=== PATIENT | male | born 1960 | race Caucasian/White ===

== ENCOUNTER 2019-10-22 13:11 | Outpatient (CLI) | payer MEDICARE, MEDICAID, SELFPAY ==
--- NOTE | ~2019-10-22 | US_ITS ---
EXAMINATION: US soft tissue abdomen DATE: 10/22/2019 13:53 INDICATION: Abdominal lump in the right lower quadrant. TECHNIQUE: Multiple grayscale and Doppler ultrasound images of the abdomen were obtained. COMPARISON: CT abdomen 05/23/2019 FINDINGS: There is no abnormal mass in the patient's area of concern in the right lower quadrant. Asc ites is noted. IMPRESSION: 1. No abnormal mass in the patient's area of concern in the right lower quadrant. 2. Ascites. Reviewed, dictated and finalized at location A. IMPRESSION: 1. No abnormal mass in the patient's area of concern in the right lower quadran t. 2. Ascites.
== END 2019-10-22 13:12 | disposition home or self-care (01) ==
PROVIDERS: Visit Provider Emergency Medicine
DX: R10.31 Right lower quadrant pain (principal); R19.03 Right lower quadrant abdominal swelling, mass and lump; R18.8 Other ascites
CPT/HCPCS: 76705

== ENCOUNTER → 2020-03-09 15:44 | Outpatient (CLI) | payer MEDICARE, MEDICAID, SELFPAY ==
--- NOTE | ~2020-03-09 | XR_ITS ---
EXAMINATION: XR chest 2V DATE: 03/09/2020 17:08 INDICATION: Hemoptysis. TECHNIQUE: Frontal and lateral views of the chest were obtained. COMPARISON: Chest 2 views 03/30/2019, CT abdomen 05/23/2019 FINDINGS: There is a staple line at right lung apex. There is mild scarring at the lung apices. No pl eural effusion or pneumothorax. The heart size is normal. IMPRESSION: 1. Mild scarring at the lung apices. Reviewed, dictated and finalized at location A.
== END ==
PROVIDERS: PCP Emergency Medicine; Visit Provider Internal Medicine Medical Oncology
DX: R04.2 Hemoptysis (principal); R91.8 Other nonspecific abnormal finding of lung field
CPT/HCPCS: 71046

== ENCOUNTER → 2020-03-17 15:06 | Outpatient (CLI) | payer MEDICARE, MEDICAID, SELFPAY ==
--- NOTE | ~2020-03-17 | CT_ITS ---
EXAMINATION: CT abdomen pelvis wo con EXAM DATE: 03/17/2020 15:29 INDICATION: Inguinal hernias. TECHNIQUE: Spiral CT of the abdomen and pelvis was performed without contrast. Axial, coronal and s agittal images were reviewed. The dose-length product (DLP) for this examination was 844.13 mGy-cm. The exposure was tailored according to patient size (auto mA exposure control), and iterative recons truction (ASIR) was used as additional dose reduction technique. Comparison is made to prior examinat ion from 05/23/2019. FINDINGS: There is TIPS procedure. Liver is atrophic, cirrhotic. Gallbladder is distended but otherw ise unremarkable, appearance unchanged. There is small amount of ascites with significant interval im provement. Adrenal glands, pancreas, spleen are unremarkable. There is no nephrolithiasis or hydrone phrosis. The prostate is unremarkable. The bladder is unremarkable. There is no retroperitoneal o r pelvic lymphadenopathy. Small right inguinal hernia containing ascites. Moderate scattered arteri osclerotic disease. The appendix is normal. The stomach and small bowel are unremarkable. There is moderate amount of c olonic stool. No free intraperitoneal gas. The heart is normal in size. There are no pericardial or pleural effusions. The lung bases are unremarkable. Several punctate basilar nodules likely gra nulomas. IMPRESSION: 1. No acute intra-abdominal findings. 2. Small right inguinal hernia containing small amount of ascites. 3. Significant interval improvement in the now small amount of ascites. 4. Moderate colonic stool. Reviewed, dictated and finalized at location B.
== END ==
PROVIDERS: PCP Emergency Medicine; Visit Provider Surgery
DX: K40.90 Unilateral inguinal hernia, without obstruction or gangrene, not specified as recurrent (principal)
CPT/HCPCS: 74176

== ENCOUNTER 2020-05-26 01:05 | Emergency (ER) | payer MEDICARE, MEDICAID, SELFPAY ==
[2020-05-26] VITALS (7 sets, daily range): BP systolic 95–156; BP diastolic 58–88; PULSE 96–122; RESP 15–25; TEMP 37.1; O2SAT 97–100
--- NOTE | 2020-05-26 01:54 | ED.GENADULT ---
HPI - General Adult General Chief complaint: Abdominal Pain Stated complaint: n/v Time Seen by Provider: 05/26/20 01:13 History of Present Illness HPI narrative: Patient is a 59-year-old male with history of cirrhosis who presents ER with concern for food impaction. Reports he was eating dinner around 9 PM and was eating some cod and green beans when due to his throat being dry he swallowed and then started vomiting. If he drinks or swallows spit the liquid will come back up. He has not had this occur to him before. He did have a endoscopy 1 year ago that showed some esophageal varices that did not require banding. He has never had balloon dilation. Reports in the past he will get food stuck but then drinks water and can clear up but that did not work this evening. Related Data Home Medications Medication Instructions Recorded Confirmed atorvastatin 40 mg tablet 40 mg PO DAILY 03/05/20 04/20/20 diphenhydramine HCl 25 mg capsule 25 mg PO Q6H PRN 03/05/20 04/20/20 docusate sodium 50 mg capsule 50 mg PO DAILY 03/05/20 04/20/20 furosemide 40 mg tablet 40 mg PO QAM 03/05/20 04/20/20 hydroxyzine HCl 25 mg tablet 25 mg PO DIRECTED PRN tablet 03/05/20 04/20/20 lactulose 10 gram/15 mL oral 10 gm PO QPM 03/05/20 04/20/20 solution melatonin 5 mg capsule 10 mg PO HS PRN 03/05/20 04/20/20 spironolactone 100 mg tablet 100 mg PO DAILY 03/05/20 04/20/20 triamcinolone acetonide 0.1 % 1 applic TOPICAL DAILY PRN gm 03/05/20 04/20/20 topical cream acetaminophen 500 mg tablet 500 mg PO Q6H PRN 03/19/20 04/20/20 calcium carbonate 550 mg-magnesium 2 tablet PO Q6H PRN 03/19/20 04/20/20 hydroxide 110 mg chewable tablet oxycodone 10 mg tablet 10 mg PO Q4H PRN 03/19/20 04/20/20 cyanocobalamin (vitamin B-12) 500 mcg PO DAILY 04/20/20 04/20/20 [Vitamin B-12] zinc 10 mg PO DAILY 04/20/20 04/20/20 Allergies Allergy/AdvReac Type Severity Reaction Status Date / Time albumin colloid, human AdvReac Severe Hypotension, Verified 05/26/20 01:33 hives, throat swelling, itching Review of Systems Constitutional: Constitutional: Denies chills, Denies fever(s) and Denies weakness ENT: Denies nasal congestion and Denies sore throat Gastrointestinal: Gastrointestinal: Reports abdominal pain (Fullness into the chest), Denies diarrhea, Reports nausea and Reports vomiting PMFSH Past Medical History Medical History (Updated 05/26/20 @ 05:11 by Johnathan Ibarra MD) Cirrhosis of liver with ascites History of heart attack Inguinal hernia of right side without obstruction or gangrene Surgical History Surgical History (Updated 03/09/20 @ 15:05 by Isaura Johnson) 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 Family History Family History Grandparent Oral cancer Acute myocardial infarction Social History Social History Smoking packs per day: 1 Smoking cigarettes per day: 20.0 Years smoked: 30 Smoking pack-years: 30.00 Smoking status: Current every day smoker Tobacco type: cigarettes Alcohol intake: never Substance use: former Substance use type: marijuana Last use: LAST USE 2 YEARS AGO Additional occupation/education comments: Disabled Gender identity (if verbalized by the patient): Male Spiritual care concerns: No Exam Narrative: Exam Narrative: GENERAL: Well-appearing, well-nourished, and in no acute distress. HEAD: Normocephalic, atraumatic. ENT: Mucous membranes moist. CHEST: Clear to auscultation. No respiratory distress. HEART: Regular rate and rhythm. Normal peripheral pulses. ABDOMEN: Soft, nontender, nondistended. EXTREMITIES: Normal range of motion. No edema. NEURO: Alert and oriented x3. Course Reevaluation(s) Reevaluation #1: Discussed with Dr. Veloz. We will keep down in the ER until GI suite is miriam
[2020-05-26] MEDS: ONDANSETRON INJ 4 MG/2 ML VIAL IV PUSH (02:12)
[2020-05-26] MEDS: SODIUM CHLORIDE 0.9% IV 1,000 ML 999 ML IV CONT (02:12)
--- NOTE | 2020-05-26 02:44 | PC.NURSE ---
Called [facility] to request transport for 7am.. 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
== END 2020-05-26 05:15 | disposition home or self-care (01) ==
PROVIDERS: Emergency Provider Emergency Medicine; PCP Emergency Medicine
DX: T18.128A Food in esophagus causing other injury, initial encounter (principal); K74.60 Unspecified cirrhosis of liver; I25.2 Old myocardial infarction; F17.210 Nicotine dependence, cigarettes, uncomplicated
CPT/HCPCS: 96361; 96374; 99284; J2405; J7030

== ENCOUNTER 2020-07-14 01:39 | Emergency (ER) | payer MEDICARE, MEDICAID, SELFPAY ==
[2020-07-14 01:39] VITALS: BP 155/85; PULSE 106; RESP 12; TEMP 37; O2SAT 96
[2020-07-14 04:32] VITALS: BP 130/71; PULSE 100; RESP 20; O2SAT 100
[2020-07-14] MEDS: OXYMETAZOLINE HCL 0.05% NAS 15 ML BTL (*BKC) 1 SPRAY NASAL (04:45)
--- NOTE | 2020-07-14 04:50 | ED.EPISTAXIS ---
HPI - Epistaxis General Chief complaint: Epistaxis Stated complaint: Nose Bleed History of Present Illness HPI Narrative: Patient is a 59-year-old male who presents ER with epistaxis. Left-sided. Began spontaneously. Has had this recurrently. Recently had cautery by Dr. Early. He has been using a vaporizer as well as Sampson nasal spray. He is not on blood thinners. Related Data Home Medications Medication Instructions Recorded Confirmed atorvastatin 40 mg tablet 40 mg PO DAILY 03/05/20 04/20/20 diphenhydramine HCl 25 mg capsule 25 mg PO Q6H PRN 03/05/20 04/20/20 furosemide 40 mg tablet 40 mg PO QAM 03/05/20 04/20/20 hydroxyzine HCl 25 mg tablet 25 mg PO DIRECTED PRN tablet 03/05/20 04/20/20 lactulose 10 gram/15 mL oral 10 gm PO QPM 03/05/20 04/20/20 solution melatonin 5 mg capsule 10 mg PO HS PRN 03/05/20 04/20/20 spironolactone 100 mg tablet 100 mg PO DAILY 03/05/20 04/20/20 triamcinolone acetonide 0.1 % 1 applic TOPICAL DAILY PRN gm 03/05/20 04/20/20 topical cream acetaminophen 500 mg tablet 500 mg PO Q6H PRN 03/19/20 04/20/20 calcium carbonate 550 mg-magnesium 2 tablet PO Q6H PRN 03/19/20 04/20/20 hydroxide 110 mg chewable tablet oxycodone 10 mg tablet 10 mg PO Q4H PRN 03/19/20 04/20/20 cyanocobalamin (vitamin B-12) 500 mcg PO DAILY 04/20/20 04/20/20 [Vitamin B-12] zinc 10 mg PO DAILY 04/20/20 04/20/20 docusate sodium 50 mg capsule 100 mg PO DAILY cap 05/27/20 Allergies Allergy/AdvReac Type Severity Reaction Status Date / Time albumin colloid, human AdvReac Severe Hypotension, Verified 07/14/20 01:45 hives, throat swelling, itching Review of Systems Constitutional: Constitutional: Denies chills, Denies fever(s) and Denies weakness ENT: Reports epistaxis, Denies nasal congestion and Denies sore throat Respiratory: Respiratory: Denies cough and Denies dyspnea PMF Past Medical History Medical History (Updated 07/14/20 @ 04:51 by Johnathan Ibarra MD) Cirrhosis of liver with ascites History of heart attack Inguinal hernia of right side without obstruction or gangrene Surgical History Surgical History (Updated 03/09/20 @ 15:05 by Isaura Johnson) 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 Family History Family History Grandparent Oral cancer Acute myocardial infarction Social History Social History Smoking packs per day: 1 Smoking cigarettes per day: 20.0 Years smoked: 30 Smoking pack-years: 30.00 Smoking status: Current every day smoker Tobacco type: cigarettes Alcohol intake: never Substance use: former Substance use type: marijuana Last use: LAST USE 2 YEARS AGO Additional occupation/education comments: Disabled Gender identity (if verbalized by the patient): Male Spiritual care concerns: No Exam Narrative: Exam Narrative: GENERAL: Well-appearing, well-nourished, and in no acute distress. HEAD: Normocephalic, atraumatic. ENT: Stigmata of bleeding in the nares bilaterally with no evidence of source of bleed. Mucous membranes moist. NEURO: No focal deficits. Alert and oriented x3. PSYCH: Normal mood and affect. Course Course Emergency Course: Bleeding controlled with pressure. Vital Signs Vital signs: Vital Signs Temperature 98.6 F 07/14/20 01:39 Pulse Rate 106 H 07/14/20 01:39 Respiratory Rate 12 07/14/20 01:39 Blood Pressure 155/85 H 07/14/20 01:39 Pulse Oximetry 96 07/14/20 01:39 Temperature 98.6 F 07/14/20 01:39 Pulse Rate 100 07/14/20 04:32 Respiratory Rate 20 07/14/20 04:32 Blood Pressure 130/71 07/14/20 04:32 Pulse Oximetry 100 07/14/20 04:32 Discharge Plan Discharge Clinical Impression: Epistaxis Patient Disposition: Home, Self-Care Condition: Stable Instructions: Nosebleed (ED) Additio
== END 2020-07-14 05:00 | disposition home or self-care (01) ==
PROVIDERS: Emergency Provider Emergency Medicine; PCP Emergency Medicine
DX: R04.0 Epistaxis (principal); K74.60 Unspecified cirrhosis of liver; I25.2 Old myocardial infarction; F17.210 Nicotine dependence, cigarettes, uncomplicated
CPT/HCPCS: 99283; A9270

== ENCOUNTER 2020-08-13 14:58 | Outpatient (CLI) | payer MEDICARE, MEDICAID, SELFPAY ==
--- NOTE | 2020-08-13 15:00 | ECG_ITS ---
Measurements Intervals [place] Rate: 95 P: 20 IN: 164 QRS: -6 QRSD: 81 T: 14 QT: 362 QTc: 456 Interpretive Statements SINUS RHYTHM LOW QRS VOLTAGE IN PRECORDIAL LEADS BORDERLINE R WAVE PROGRESSION, ANTERIOR LEADS BASELINE ARTIFACT- I, II, III BORDERLINE ECG Electronically Signed On 08-13-2020 15:28:06 RESIDENT CARE ASSOCIATE by Jorje Berrios D.O.
[2020-08-13 15:38] LABS: Hematocrit 33.5 % (42.0-52.0); Hemoglobin 11.8 g/dL (14.0-18.0)
[2020-08-13 15:48] LABS: INR 1.1; Prothrombin Time 14.6 Seconds (11.1-14.7)
[2020-08-13 15:49] LABS: Partial Thromboplastin Time 32.6 SECONDS (22.3-36.8)
[2020-08-13 15:53] LABS: Anion Gap 5 mmol/L (8-16); Blood Urea Nitrogen 17 mg/dL (9-20); Calcium 9.2 mg/dL (8.4-10.2); Carbon Dioxide 26 mmol/L (22-30); Chloride 100 mmol/L (98-107); Estimated Glomerular Filt Rate > 60; Glucose 106 mg/dL (75-110); Potassium 4.8 mmol/L (3.4-5.0); Sodium 131 mmol/L (137-145)
== END 2020-08-13 14:59 | disposition home or self-care (01) ==
PROVIDERS: Anesthesiology; PCP Emergency Medicine; Visit Provider Surgery
DX: K40.90 Unilateral inguinal hernia, without obstruction or gangrene, not specified as recurrent (principal); E78.00 Pure hypercholesterolemia, unspecified; K76.9 Liver disease, unspecified; Z79.899 Other long term (current) drug therapy; D64.9 Anemia, unspecified; Z01.818 Encounter for other preprocedural examination
CPT/HCPCS: 36415; 80048; 85014; 85018; 85610; 85730; 86850; 86900; 86901; 93005

== ENCOUNTER → 2020-08-28 02:21 | Outpatient (CLI) | payer MEDICARE, MEDICAID, SELFPAY ==
[2020-08-28 19:28] LABS: SARS-CoV-2 RNA PCR Negative
== END ==
PROVIDERS: PCP Emergency Medicine; Visit Provider Surgery
DX: Z01.812 Encounter for preprocedural laboratory examination (principal); Z20.822 Contact with and (suspected) exposure to COVID-19
CPT/HCPCS: C9803; U0003; U0005

== ENCOUNTER 2020-08-28 10:14 | Outpatient (CLI) | payer MEDICARE, MEDICAID, SELFPAY | END 2020-08-28 10:15 | disposition home or self-care (01) | LOC: ANHLAB 10:19 | PROVIDERS: PCP Emergency Medicine; Visit Provider Surgery | DX: K46.9 Unspecified abdominal hernia without obstruction or gangrene (principal); Z01.818 Encounter for other preprocedural examination | CPT/HCPCS: 36415; 86850; 86900; 86901 ==

== ENCOUNTER 2020-08-31 01:52 | Day surgery (SDC) | payer MEDICARE, MEDICAID, SELFPAY ==
[2020-04-20 09:23] VITALS: BMI 25.1
[2020-08-12 10:03] VITALS: BMI 26.5
--- NOTE | 2020-08-24 14:10 | PC.NURSE ---
PT DENIES ANY CHANGE IN HEALTH OR MEDICATION SINCE INTERVIEW. NEW INSTRUCTIONS REVIEWED. ALL QUESTIONS ANSWERED.
--- NOTE | 2020-08-31 06:56 | WPDANESEPPF ---
Anes - Initial Pre Proc Eval Procedure: Operation Date: 08/31/20 07:30 Proposed Procedures p Robotic Assisted Laparoscopic Right Inguinal Hernia Repair With Mesh - Ny Ho MD Date/Time: 08/31/20 06:56 Surgeon: Ny Ho MD Pre Op Diagnosis: Right Inguinal Hernia Patient Data Age: 60 Gender: M Height: 5 ft 11 in Weight: 94.1 kg Allergies Allergy/AdvReac Type Severity Reaction Status Date / Time albumin colloid, human Allergy Severe Hypotension, Verified 08/31/20 06:22 hives, throat swelling, itching Home Medications Medication Instructions Recorded Confirmed Type atorvastatin 40 mg tablet 40 mg PO DAILY 03/05/20 08/31/20 History diphenhydramine HCl 25 mg capsule 25 mg PO Q6H PRN 03/05/20 08/12/20 History furosemide 40 mg tablet 40 mg PO QAM 03/05/20 08/31/20 History hydroxyzine HCl 25 mg tablet 25 mg PO DIRECTED PRN tablet 03/05/20 08/12/20 History lactulose 10 gram/15 mL oral 10 gm PO QPM PRN 03/05/20 08/31/20 History solution melatonin 5 mg capsule 10 mg PO HS PRN 03/05/20 08/31/20 History spironolactone 100 mg tablet 100 mg PO DAILY 03/05/20 08/31/20 History triamcinolone acetonide 0.1 % 1 applic TOPICAL DAILY PRN gm 03/05/20 08/12/20 History topical cream acetaminophen 500 mg tablet 500 mg PO Q6H PRN 03/19/20 08/31/20 History calcium carbonate 550 mg-magnesium 2 tablet PO Q6H PRN 03/19/20 08/12/20 History hydroxide 110 mg chewable tablet oxycodone 10 mg tablet 10 mg PO Q4H PRN 03/19/20 08/31/20 History cyanocobalamin (vitamin B-12) 500 mcg PO DAILY 04/20/20 08/31/20 History [Vitamin B-12] zinc 10 mg PO DAILY 04/20/20 08/12/20 History docusate sodium 50 mg capsule 100 mg PO DAILY cap 05/27/20 08/31/20 History Lidocaine Cream 4 % PRN 08/12/20 08/12/20 History polyethylene glycol 3350 [Miralax] 17 g PO DAILY PRN 08/12/20 08/12/20 History simethicone [Gas-X Extra Strength] 125 mg PO DAILY PRN 08/12/20 08/12/20 History Patient hx anesthesia problems: none Family hx anesthesia problems: none PMFSH Past Medical History Medical History Cirrhosis of liver with ascites History of heart attack Inguinal hernia of right side without obstruction or gangrene Surgical History Surgical History 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 Family History Family History Grandparent Oral cancer Acute myocardial infarction Social History Social History Smoking packs per day: 1 Smoking cigarettes per day: 20.0 Years smoked: 30 Smoking pack-years: 30.00 Smoking status: Current every day smoker Tobacco type: cigarettes Alcohol intake: never Alcohol use details: STATES LAST DRINK FEB 2019 Substance use: former Substance use type: marijuana Last use: 2017 Living arrangements: with family Additional occupation/education comments: Disabled Gender identity (if verbalized by the patient): Male Spiritual care concerns: No Anes - Eval Final PreProcedure Day of Procedure 08/31/20 06:56 Patient weight: overweight Heart: regular rate and rhythm Lungs: clear to auscultation Airway: Mallampati scale class III and special considerations poor opening and poor dentition Last oral intake: >/= 8 hours ASA classification: IV Emergent: no Anesthetic plan: proceed Anesthesia type and monitoring: general ETT and standard monitoring Informed Consent: The patient's anesthetic plan and its attendant risks and benefits were discussed with the patient/family/POA. Questions were solicited and answers provided to the satisfaction of the patient/family/POA.
[2020-08-31] MEDS: ACETAMINOPHEN 500 MG TABLET 1000 MG PO (07:23)
[2020-08-31] MEDS: LACTATED RINGERS 1,000 ML 30 ML IV CONT (07:23)
[2020-08-31 07:28] VITALS: BP 133/74; PULSE 95; RESP 16; TEMP 36.8; O2SAT 100
[2020-08-31] MEDS: KETOROLAC 15 MG/ML VIAL (*BKC) IV PUSH (07:28)
--- NOTE | 2020-08-31 07:38 | WPDHPUPDATE1 ---
History and Physical Update Update Date/Time: 08/31/20 07:38 History and Physical has been reviewed, including an updated exam of the patient. Patient reports worsening of his overall health including severe coagulopathy. Pt reports recently he has had severe nosebleeds requiring operative intervention. Pt also reports during last procedure c general anesthesia he had a cardiac arrest. Pt is very anxious overall. After long d/w pt and his , as well as anesthesia, decision made to cancel the procedure. Pt will need a higher level of care to proceed c hernia repair.
== END 2020-08-31 07:50 | disposition home or self-care (01) ==
PROVIDERS: PCP Emergency Medicine; Visit Provider Surgery
PROC: 8E0Y4CZ Robotic Assisted Procedure of Lower Extremity, Percutaneous Endoscopic Approach (ICD-10-PCS; CPT 49650; principal; 2020-08-31 07:30)
DX: K40.90 Unilateral inguinal hernia, without obstruction or gangrene, not specified as recurrent (principal); Z53.29 Procedure and treatment not carried out because of patient's decision for other reasons
CPT/HCPCS: 36415; 80048; 85014; 85018; 85610; 85730; 86850; 86900; 86901; 93005; 99213; A9270; C9803; G0463; J1885; J2250; J3010; J7030; J7120; U0003; U0005

== ENCOUNTER 2020-10-09 17:41 | Outpatient (CLI) | payer MEDICARE, MEDICAID, SELFPAY ==
[2020-10-09 18:02] LABS: Basophils Absolute Auto 0.1 K/mm3 (0.0-0.1); Basophils Percent Auto 0.7 % (0.2-1.2); Eosinophils Absolute Auto 0.3 K/mm3 (0-0.3); Hematocrit 32.7 % (42.0-52.0); Hemoglobin 11.4 g/dL (14.0-18.0); Immature Granulocyte Absolute 0.01 K/mm3 (0.00-0.031); Immature Granulocyte Percent A 0.1 % (0-0.5); Lymphocytes Absolute Auto 2.51 K/mm3 (0.9-3.2); Mean Corpuscular HGB Conc 34.9 g/dl (32-36); Mean Corpuscular Hemoglobin 35.8 pg (26-34); Mean Corpuscular Volume 102.8 fl (80-100); Mean Platelet Volume 8.7 fl (7.4-10.4); Monocytes Absolute Auto 0.9 K/mm3 (0.1-0.6); Monocytes Percent Auto 12.8 % (2.6-8.5); Neutrophils Percent Auto 44.4 % (45.5-73.1); Platelet Count Result 146 k/mm3 (150-375); Red Blood Count 3.18 M/mm3 (4.6-6.20); Red Cell Distribution Width 12.8 % (11.5-14.5); Reticulocyte Hemoglobin Conten 39.8 pg (28.2-35.7); Reticulocytes Absolute 0.06 B/L (32.2-175.7); White Blood Count 6.8 K/mm3 (4.5-10.0)
[2020-10-09 18:13] LABS: Alanine Aminotransferase 21 U/L (4-50); Albumin Level 4.1 g/dL (3.5-5.1); Alkaline Phosphatase 110 U/L (38-126); Anion Gap 8 mmol/L (8-16); Aspartate Amino Transferase 37 U/L (17-59); Bilirubin,Total 0.5 mg/dL (0.2-1.3); Blood Urea Nitrogen 12 mg/dL (9-20); Calcium 9.4 mg/dL (8.4-10.2); Carbon Dioxide 25 mmol/L (22-30); Chloride 99 mmol/L (98-107); Estimated Glomerular Filt Rate > 60; Glucose 123 mg/dL (75-110); Potassium 4.2 mmol/L (3.4-5.0); Sodium 132 mmol/L (137-145)
== END 2020-10-09 17:42 | disposition home or self-care (01) ==
LOC: ANHLAB 17:46
PROVIDERS: PCP Emergency Medicine; Visit Provider Internal Medicine Medical Oncology
DX: D53.9 Nutritional anemia, unspecified (principal); D69.59 Other secondary thrombocytopenia
CPT/HCPCS: 36415; 80053; 85025; 85046

== ENCOUNTER 2020-11-16 16:24 | Outpatient (CLI) | payer MEDICARE, MEDICAID, SELFPAY ==
[2020-11-16 17:44] LABS: INR 1.1; Prothrombin Time 15.1 Seconds (11.1-14.7)
== END 2020-11-16 16:25 | disposition home or self-care (01) ==
PROVIDERS: PCP Emergency Medicine
DX: K70.31 Alcoholic cirrhosis of liver with ascites (principal); Z95.828 Presence of other vascular implants and grafts; D69.59 Other secondary thrombocytopenia
CPT/HCPCS: 36415; 85610

== ENCOUNTER 2021-03-17 14:41 | Outpatient (CLI) | payer MEDICARE, MEDICAID, SELFPAY ==
--- NOTE | 2021-03-17 | ECHO_ITS ---
Patient Info Name: Anthony Harrison Age: 60 years : 1960 Gender: Male Ht: 71 in Wt: 216 lbs BSA: 2.24 m2 HR: 78 bpm Heart Rhythm: Sinus Rhythm Technical Quality: Fair Exam Date: 03/17/2021 3:02 PM [facility] Patient Status: Outpatient Admit Date: 03/17/2021 Staff Ordering Physician: Kaleigh Queen Insulation Packer: Dari Ward RDCS Attending Provider: Kaleigh Queen Referring Physician: Bret CANDELARIA; Exam Type: CA echo doppler color flow Study Info Indications - PRE OP Complete two-dimensional, color flow and Doppler transthoracic echocardiogram is performed. Summary 1. Complete two-dimensional, color flow and Doppler transthoracic echocardiogram is performed. 2. Left ventricular chamber dimension is normal. 3. Left ventricular systolic function is normal, estimated at 65-70%. 4. There is no increased left ventricular wall thickness. 5. The left ventricular diastolic function is grade I diastolic dysfunction. 6. The mid inferoseptal is akinetic. 7. The inferior wall, apical septum, basal inferoseptal, basal anteroseptal, and mid anteroseptal are hypokinetic. 8. Left atrial chamber dimension is mildly enlarged. 9. There is mild tricuspid valve regurgitation. Left Ventricle Left ventricular chamber dimension is normal. Left ventricular systolic function is normal, estimated at 65-70%. There is no increased left ventricular wall thickness. The left ventricular diastolic function is grade I diastolic dysfunction. The mid inferoseptal is akinetic. The inferior wall, apical septum, basal inferoseptal, basal anteroseptal, and mid anteroseptal are hypokinetic. All other vines appear normal. Right Ventricle Right ventricular chamber dimension is normal. Right ventricular systolic function is normal. Left Atria Left atrial chamber dimension is mildly enlarged. Right Atria Right atrial chamber dimension is normal. Atrial Septum Intact interatrial septum visualized by color flow imaging. Aortic Valve The aortic valve is probable trileaflet. There is mild aortic valve sclerosis. There is no aortic valve stenosis. There is trace aortic valve regurgitation. Pulmonic Valve The pulmonic valve is normal. There is no pulmonic valve stenosis. There is trace pulmonic regurgitation. Mitral Valve The mitral valve has calcified annulus. There is no mitral valve stenosis. There is trace mitral valve regurgitation. Tricuspid Valve The tricuspid valve leaflets are normal. There is no significant tricuspid valve stenosis. There is mild tricuspid valve regurgitation. No pulmonary hypertension, estimated pulmonary arterial systolic pressure is 33 mmHg. Pericardium/Pleural The pericardium appears normal. There is no pericardial effusion. Inferior Vena Cava Normal inferior vena cava with >50% collapse upon inspiration consistent with normal right atrial pressure, 10 mmHg. Aorta The aortic root size at the sinus of Valsalva is normal. Left Ventricular Outflow Tract Name Value Normal LVOT 2D LVOT Diameter 2.1 cm LVOT Doppler LVOT Peak
== END 2021-03-17 14:42 | disposition home or self-care (01) ==
LOC: ANHCARD 14:46
PROVIDERS: PCP Emergency Medicine
DX: Z01.818 Encounter for other preprocedural examination (principal); I36.1 Nonrheumatic tricuspid (valve) insufficiency
CPT/HCPCS: 93306

== ENCOUNTER 2022-02-11 17:43 | Outpatient (CLI) | payer MEDICARE, MEDICAID, SELFPAY ==
--- NOTE | ~2022-02-11 | CT_ITS ---
EXAMINATION: CT thoracic lumbar wo con DATE: 02/11/2022 18:14 INDICATION: Back pain. TECHNIQUE: Computed tomography (CT) of the thoracic and lumbar spine was performed without intravenou s contrast. Automated exposure control and iterative reconstruction technique were employed. The dose -length product was 2015.46 mGy-cm. COMPARISON: None FINDINGS: CT THORACIC SPINE: There is 9 degrees levocurvature of thoracic spine. There is kyphosis of thoracic spine. There is mild chronic anterior wedging of T12 vertebral body. There is mildly decreased disc h eight from T7-T8 through T12-L1. There is multilevel mild facet joint osteoarthritis. On the right, t here is mild neural foraminal stenosis at T9-T10 and T10-T11. On the left, there is mild neural isabela inal stenosis at T7-T8, T8-T9, and T9-T10. No central canal stenosis. CT LUMBAR SPINE: Partially visualized is a TIPS. There is mild chronic anterior wedging of L1 vertebr al body. There is mildly decreased disc height at L1-L2. The following disc levels are specifically d iscussed: L1-L2: The disc is bulging. There is mild bilateral facet joint osteoarthritis. There is no neural fo raminal stenosis. There is no central canal stenosis. L2-L3: The disc is bulging. There is mild bilateral facet joint osteoarthritis. There is mild left ne ural foraminal stenosis. There is no central canal stenosis. L3-L4: The disc is bulging. There is moderate right and severe left facet joint osteoarthritis. There is mild bilateral neural foraminal stenosis. There is no central canal stenosis. L4-L5: The disc is bulging. There is moderate bilateral facet joint osteoarthritis. There is mild rojelio ateral neural foraminal stenosis. There is mild central canal stenosis. L5-S1: The disc is bulging. There is mild bilateral facet joint osteoarthritis. There is no neural fo raminal stenosis. There is no central canal stenosis. IMPRESSION: 1. Mild thoracic and lumbar spondylosis. 2. Thoracic kyphosis. Reviewed, dictated and finalized at location A.
== END 2022-02-11 17:44 | disposition home or self-care (01) ==
PROVIDERS: PCP Family Medicine
DX: M47.24 Other spondylosis with radiculopathy, thoracic region (principal); M47.26 Other spondylosis with radiculopathy, lumbar region
CPT/HCPCS: 72128; 72131

== ENCOUNTER 2024-10-09 13:44 | Outpatient (CLI) | payer MEDICARE, MEDICAID, SELFPAY ==
--- NOTE | ~2024-10-09 | CT_ITS ---
EXAMINATION: CT thoracic lumbar wo con DATE: 10/09/2024 14:46 INDICATION: Radiculopathy TECHNIQUE: Computed tomography (CT) of the thoracic and lumbar spine was performed without intravenou s contrast. Automated exposure control and iterative reconstruction technique were employed. The dose -length product was 1075.00 mGy-cm. COMPARISON: Lumbar spine MR dated 09/20/2018, chest CT dated 04/25/[address] abdomen and pelvis date d 03/17/2020 FINDINGS: Thoracic spine: 20 degrees thoracic levoscoliosis. Sagittal alignment is normal. Chronic mild anterior wedging at T12 . There are Schmorl's nodes at both sides of the T10-T11 through L1-L2 disc spaces. No acute fracture . Moderate to severe disc height loss at T11-T12, moderate right-sided predominant disc height loss a t T7-T8 through T9-T10 and mild disc height loss at the remaining levels from T4-T5 through T12-L1. M ild disc bulge resulting in mild central canal stenosis at T11-T12. Multilevel mild to moderate thora cic facet osteoarthritis which contributes to minimal to mild neural foraminal stenosis prominent on the left at T7-T8 through T9-T10 and on the right at T9-T10 and T10-T11. Visualized portion of lungs are clear. Paravertebral soft tissues are unremarkable. Lumbar spine: 15 degrees thoracolumbar dextro scoliosis. Sagittal alignment is normal. Additional chronic mild like ly physiologic anterior wedging at L1. Mild left-sided vertebral body height loss at L1-L2 and L2-L3 and more diffuse mild disc height loss at L4-5 and L5-S1. Paravertebral soft tissues are unremarkable . The following disc levels are specifically discussed: T12-L1: The disc does not extend beyond the endplate margin. There is mild to moderate bilateral face t joint osteoarthritis. There is no neural foraminal stenosis. There is no central canal stenosis. L1-L2: Disc is mildly bulging. There is mild left and moderate right facet joint osteoarthritis. Ther e is mild left neural foraminal stenosis. There is mild central canal stenosis. L2-L3: Disc is bulging. There is moderate left to moderate right facet joint osteoarthritis. There is mild bilateral neural foraminal stenosis. There is mild central canal stenosis. L3-L4: Disc is bulging. There is moderate right and moderate to severe left facet joint osteoarthriti s. There is mild bilateral neural foraminal stenosis. There is mild central canal stenosis. L4-L5: Disc is bulging. There is moderate bilateral facet joint osteoarthritis. There is mild to mode rate bilateral neural foraminal stenosis. There is mild central canal stenosis. L5-S1: The disc does not extend beyond the endplate margin. There is mild bilateral facet joint osteo arthritis. There is no neural foraminal stenosis. There is no central canal stenosis. IMPRESSION: 1. S-shaped thoracic lumbar scoliosis with 20 degree thoracic levoscoliosis and 15 degrees thoracolum bar dextroscoliosis. 2. Moderate to severe lower thoracic predominant thoracic spondylosis and mild lumbar spondylosis. Reviewed, dictated and finalized at location A. IMPRESSION: 1. S-shaped thoracic lumbar scoliosis with 20 degree thoracic levoscoliosis and 15 degrees thoracolumbar dextroscoliosis. 2. Moderate to severe lower thoracic predominant thoracic spondylosis and mild lumbar spondylosis.
--- OUTSIDE RECORDS SUMMARY | 2024-10-09 14:40 | XMS_ITS | Clinical Summary ---
Author Organization [facility] [address] Address [address] [place] [address] Care Team Providers Care Data Entry Name Role Phone Lei Moreno MD Unavailable [phone] Elmer Black DO Unavailable [phone] Sabina Bautista MD Unavailable Jillian Jimenez NP Primary Care Provider [phone] Allergies Active Allergy Reactions Criticality Noted Date Comments Amoxicillin Diarrhea Low 09/29/2023 Clindamycin Diarrhea Low 01/26/2023 Severe abdominal pain Penicillins Diarrhea Low 01/26/2023 Severe abdominal pain Medications atorvastatin (LIPITOR) 40 mg tabletIndicati ons:hyperlipid emia Take 1 tablet (40 mg total) by mouth nightly 0 Active calcium carbonate (TUMS) 500 mg calcium (200 mg of elemental calcium) chewable tabletIndicati ons:Heartburn Take 1 tablet/chew tab (500 mg total) by mouth as needed for indigestion or heartburn Has an inguinal hernia that sometimes causes digestion discomforts Active simethicone (GAS-X) 125 mg capsule Take 1 capsule (125 mg total) by mouth 4 (four) times a day as needed for flatulence 0 Active acetaminophen (TYLENOL) 500 mg tabletIndicati ons:Pain Take 2 tablets (1,000 mg total) by mouth every 6 (six) hours as needed for pain or headaches 2 tablets Active multivit,calc, mins/folic acid (ONE-A-DAY PROACTIVE 65 PLUS ORAL)Indicatio ns:Vitamin Deficiency Prevention Take 1 tablet by mouth every morning No Vitamin E or K in it takes with mid morning snack and lunch 1 Active oxymetazoline (AFRIN) 0.05 % nasal sprayIndicatio ns:to help prevent nose bleeds (left side is more prone to bleed than right) Administer 1 spray into each nostril 2 (two) times a day as needed (Nasal Epistaxis) 0 Active lidocaine HCL-menthoL 4-1 % cream Apply 1 Application topically as needed (uses for hernia pain) Active chlorhexidine (PERIDEX) 0.12 % solutionIndica tions:Mouth Infection Prevention Apply 15 mL to the mouth or throat nightly as needed 3 Active vitamin b complex tabletIndicati ons:Vitamin Deficiency Prevention Take 1 tablet by mouth every morning B6/folate/b12 Methyl versions Active tiZANidine (ZANAFLEX) 4 mg tabletIndicati ons:Muscle Spasm Take 1.33 mg by mouth nightly Only takes about a third of a tablet Active diphenhydrAMIN E 25 mg capsuleIndicat ions:congestio n Take 1 tablet/capsule (25 mg total) by mouth every 6 (six) hours as needed for allergies Active LORazepam (ATIVAN) 0.5 mg tablet Take 1 tablet (0.5 mg total) by mouth 3 (three) times a day as needed for anxiety for anxiety 20 tablet 5 Active spironolactone (ALDACTONE) 100 mg tabletIndicati ons:Ascites,In guinal hernia (gets larger if tries to get off) Take 0.5 tablets (50 mg total) by mouth nightly 30 tablet 5 12/06/19 29 Active furosemide (LASIX) 20 mg tabletIndicati ons:because of hernia/ got worse when tried to reduce dose Take 1 tablet (20 mg total) by mouth every other day 15 tablet 5 Active docusate sodium (COLACE) 100 mg capsuleIndicat ions:constipat ion Take 1 capsule (100 mg total) by mouth 2 (two) times a day with a glass of water 30 capsule 5 04/10/20 25 Discontin ued(Thera py completed ) Active Problems Problem Noted Date Diagnosed Date History of right inguinal hernia repair 07/29/19 25 Mixed hyperlipidemia 08/17/2023 Assessment & Plan (09/20/2024 8:45 AM CDT): Continue lipitor 40. Order for lipid panel today. Assessment & Plan (02/15/2024 3:38 PM CDT): Lipid abnormalities are stable, reviewed previous lipid levels in [facility]. Continue statin therapy. Lipitor (atorvastatin) Order for lipid panel was given today to be obtained. Pt voiced understanding of lab drawn and continuation of current medication regimen. Assessment & Plan (08/17/2023 4:29 PM G[employer]OLINE PLANT OPERATOR): Lipid abnormalities are stable, reviewed previous lipid levels in [facility]. Pharmacotherapy as ordered. Order for lipid panel was given today to be obtained. Pt voiced understanding of lab drawn and continuation of current medication regimen. Dental caries extending into pulp 08/03/2023 Tobacco use 07/14/2022 Assessment & Plan (02/15/2024 4:33 PM CDT): He is actively working on smoking cessation. Assessment & Plan (07/14/2022 5:35 PM G[employer]OLINE PLANT OPERATOR): Chronic, encouraged and discussed cessation. Educated about the Nicotine patches, not interested in Zyban. He is wishing to hold off on CT Lung Cancer screen at this time. Chronic pain syndrome 08/20/2021 Assessment & Plan (08/20/2021 6:20 PM GASOLINE PLANT OPERATOR): Planning on stepping down to 1/2 tab q6 PRN for the next month Gabapentin trial (may take as needed rather than every 8 hours on the clock) Discussed antibiotics Lumbosacral spondylosis without myelopathy 06/14 Lumbar facet joint syndrome 05/10/2021 Well adult exam 04/18/2021 Assessment & Plan (08/17/2023 3:26 PM G[employer]OLINE PLANT OPERATOR): Does not want PSA drawn today will take too long and needs labs back for preop - 1. Preoperative workup as follows hemoglobin, hematocrit, electrolytes, creatinine, glucose, liver function studies, coagulation studies. 2. Change in medication regimen before surgery: per surgeon . 3.. Other measures: cardiac clearance, GI clearance . 4. Chronic conditions are stable 5. Pt is moderate risk for surgery S/P TIPS (transjugular intrahepatic portosystemi c shunt) 08/06/2020 Assessment & Plan (07/13/2023 2:52 PM G[employer]OLINE PLANT OPERATOR): Due for repeat US with Doppler. Will order today Assessment & Plan (07/14/2022 5:34 PM G[employer]OLINE PLANT OPERATOR): Stable, continues follow up with GI/[employer]. Macrocytic anemia 02/02/2020 Assessment & Plan (07/13/2023 2:52 PM G[employer]OLINE PLANT OPERATOR): Likely secondary to cirrhosis and nutritional deficiencies. -follow up per heme -ctm Thrombocytopenia, secondary 02/02/2020 Assessment & Plan (09/20/2024 8:42 AM CDT): Lab Results Component Value Date LABPLAT 138 (L) 06/26/2024 Chronic/ stable. Assessment & Plan (07/14/2022 5:33 PM GASOLINE PLANT OPERATOR): Labs ordered Coronary artery disease, non-occlusive 0 Overview (04/14/2021): Last Assessment & Plan: Stable denies chest pain, coninue ASA and statin. FLP in November WNL. No changes. Assessment & Plan (07/14/2022 5:33 PM GASOLINE PLANT OPERATOR): Stable, continues current regimen and follows with Cardio. Anxiety disorder due to multiple medical problem s 08/11/2019 10/05/2022 Assessment & Plan (02/15/2024 3:38 PM CDT): Takes lorazepam prior to seeing medical appointment scheduler/ office visits. Assessment & Plan (08/17/2023 3:27 PM GASOLINE PLANT OPERATOR): Will renew lorazepam #10 tablets Assessment & Plan (10/06/2022 1:11 PM CDT): Has follow up scheduled with surgeon 11/[address] Fernando (ENT) 11/09 Anxiety attack has surpassed, will continue to monitor. Pt does not that once his oral surgery is scheduled he will want to talk to Dr Garsia about gradually weaning off of the Butrans. Alcoholic cirrhosis of liver with ascites 2018 Assessment & Plan (09/20/2024 8:46 AM CDT): Recovering. Assessment & Plan (01/18/2024 6:30 PM CDT): Decompensated by history but clinically stable in the face of alcohol abstinence, weight loss, and medical management. I will continue to screen for hepatocellular carcinoma sonographically every 6 months. He will return in 1 year or when clinically indicated. Assessment & Plan (08/17/2023 4:32 PM G[employer]OLINE PLANT OPERATOR): Managed by Dr. López. Ultrasound of abdomen scheduled August 22 Resolved Problems Problem Noted Date Diagnosed Date Resolved Date Inguinal hernia without obst ruction or gangrene 02/08/2024 08/09/2024 Therapeutic opioid-induced constipation (OIC) 12/10/1908/17/2023 Chronic bilateral low back p ain without sciatica 05/10/2021 08/17/2023 Assessment & Plan (06/06/2021 6:17 PM GASOLINE PLANT OPERATOR): It has been relayed to Anthony previously that I'm only covering oxycodone until pain management. He has had to cancel/move 2 appointments which he holds is due to difficulties with his transportation. I will not keep filling oxycodone after this next slated pain management appointment, so I emphasized he cannot miss or move that appointment Transportation resources may need to be readdressed. I'm not sure of the options off-hand. Perhaps we will check with social Long-term current use of opiate analgesic 05/10/2021 08/17/2023 Establishing care with jojo hargrove, encounter for 04/18/2021 08/17/2023 Assessment & Plan (04/18/2021 2:59 PM G[employer]OLINE PLANT OPERATOR): A visit to establish care has been performed today. Anthony Harrison is not up to date on screening tests. He is in need of Prostate screening, Lung cancer screen, hepatitis C screen and Colon cancer screening- these have been ordered. He is not up to date on needed preventative vaccinations; She is in need of Tdap/Td, Influenza and Zoster. These have been ordered/arranged unless otherwise indicated. Inguinal hernia of right emma e without obstruction or gangrene 04/14/2021 08/10/2024 Assessment & Plan (01/18/2024 6:31 PM CDT): Scheduled to see Dr. Moore in [place] regarding inguinal hernia repair in the near future. I see no contraindications to hernia repair in light of his clinical stability. Cardiac arrest 04/14/2021 01/12/2024 Overview (04/14/2021): Last Assessment & Plan: SP PEA arrest in the setting of hypotension/hypovolemia. Off Midodrine with improved BP today in clinic and per his home log. N syncope or presyncope. Pre operatively doing well. Repeat ECHO to assure EF stability in the setting of post cardiac arrest and multiple upcoming surgeries. EF in August 2019 stable. If EF remains stable then pt is at low risk for cardiovascular complications for upcoming surgery. All of his chronic cardiac conditions are stable and require no further work up at this time. If risk outweighs benefit then proceed. Assessment & Plan (08/17/2023 4:37 PM G[employer]OLINE PLANT OPERATOR): Has had clearance for previous procedures, but will need another clearance from cardiology given history of cardiac arrest. Other ascites 10/10/2019 08/17/2023 Hypotension 08/30/2019 08/17/2023 Insomnia 08/30/2019 08/17/2023 Encounters Date Type Department Care Team Description 09/25/2024 2:00 PM CDT Office Visit [facility]) - [facility] Urology [address] [facility] 11th Floor [address] [place] [phone] Louie Anne MD Acquired buried penis (Primary Dx) 09/19/2024 3:00 PM CDT Office Visit [facility] Primary Care at [address] [address] Jillian Jimenez NP Mixed hyperlipidemia (Primary Dx); Alcoholic cirrhosis of liver with ascites (HCC); Thrombocytopenia, secondary; Elevated glucose 09/17/2024 Telephone [facility] Gastroenterology [facility] 12th Floor [address] [place] [phone] Scan 09/05/[address] [facility]) - [facility] [place] Minimally Invasive Surgery [address] [place] [address] 12th Floor, [address] [place] [phone] Vonnie Calero RMA 09/04/2024 [facility]) - [facility] Minimally Invasive Surgery [address] [place] [address] 12th Floor, [address] [place] [phone] Peña Jones MD PhD Medical Question/Miscellaneous 2024 [facility]) - [facility] Minimally Invasive Surgery [address] [place] [address] 12th Floor, [address] [place] [phone] Peña Jones MD PhD Request For Order(s) 08/22/2024 Orders Only [facility] Gastroenterology [address] [place] [address] 12th Floor [address] [place] [phone] Cherry Gregory, CORA Alcoholic cirrhosis of liver with ascites (HCC) 08/21/2024 [facility]) - [facility] Minimally Invasive Surgery [address] [place] [address] 12th Floor, [place] [phone] Reinaldo Moore MD Request For Order(s) 08/19/2024 [facility]) - [facility] Minimally Invasive Surgery [address] [place] [address] Floor, [place] [address] Reinaldo Moore MD Medical Question/Miscellaneous 08/09/2024 3:00 PM G[employer]OLINE PLANT OPERATOR Office Visit [facility]) - [facility] Minimally Invasive Surgery [address], [place] [address] Leslie Kelley, BELLO History of robot-assisted repair of right inguinal hernia (Primary Dx); Acquired buried penis; Weakness 07/31/2024 Orders Only [facility] Gastroenterology [address] [place] [place] [address] [place] [address] Cherry Gregory RN Alcoholic cirrhosis of liver with ascites (HCC) 07/22/2024 Orders Only [facility] Minimally Invasive Surgery [address], [place] [phone] Reinaldo Moore MD Postoperative pain from Last 3 Months Immunizations Immunization Administration Dates Next Due Hep A / Hep B 03/08/2023,03/30/2022,11/24/2021 HiB 07/01/2019,06/14/2019 Influenza, Quadrivalent, Spl it, Preservative Free, Intramuscular 03/08/2023,05/14/2022 Influenza, Trivalent, Preser vative Free, Intramuscular 03/13/2024 Influenza, Unspecified 03/30/2022,2021(Deferred: Patient Refused),05/31/2021(Deferred: Patient Refused),03/19/2021,07/01/2020(Deferre d: Patient Refused),04/26/2020(Deferred: Patient Refused),07/01/2019,06/14/2019 Pneumococcal Conjugate Pcv20 04/03/2024 Surgical History Surgery Date Site/Laterality Comments TIPS PROCEDURE 08/09/2019 IR TIPS PROCEDURE 08/09/2019 Kiah Painter MD [facility] IVR NASAL SEPTUM SURGERY 06/12/1980 - 06/11/1981 EXTENSOR TENDON OF FOREARM / WRIST REPAIR 06/12/1972 - 06/11/1973 Left in youth US GUIDED PARACENTESIS 08/01/2019 N/A US GUIDED PARACENTESIS 07/25/2019 N/A US GUIDED PARACENTESIS 07/01/2019 N/A US GUIDED PARACENTESIS 06/14/2019 N/A US GUIDED PARACENTESIS 05/31/2019 N/A US GUIDED PARACENTESIS 05/13/2019 N/A US GUIDED PARACENTESIS 05/01/2019 N/A US GUIDED PARACENTESIS 04/16/2019 N/A US GUIDED PARACENTESIS 03/26/2019 N/A US GUIDED PARACENTESIS 02/28/2019 N/A MULTIPLE TOOTH EXTRACTIONS 02/02/2023 ALVEOLOPLASTY performed by Bernard Moreno DMD NASAL HEMORRHAGE CONTROL 09/22/2022 CONTROL OF EPISTAXIS US GUIDED PARACENTESIS ABDOMEN 10/10/2019 Percutaneous THORACOTOMY 06/12/1984 - 06/11/1985 right bleb removal and pleurodisis MULTIPLE TOOTH EXTRACTIONS 10/11/2023 LAPAROSCOPIC INGUINAL HERNIA REPAIR 07/04/2024 RTAPP Medical History Medical History Date Comments Heart attack (HCC) Peripheral neuropathy Cirrhosis (HCC) Anemia Cardiac arrest (HCC) Anxiety and depression Lumbar radiculopathy Cardiac arrest (HCC) 04/14/2021 Last Assess ment & Plan: SP PEA arrest in the setting of hypotension/hypovolemia. Off Midodrine with improved BP today in clinic and per his home log. N syncope or presyncope. Pre operatively doing well. Repeat ECHO to assure EF stability in the setting of post cardiac arrest and multiple upcoming surgeries. EF in August 2019 stable. If Coronary artery disease Obesity Fatty liver Thrombocytopenia, secondary 02/02/2020 Alcoholic cirrhosis of liver with ascites (HCC) 05/30/2019 Inguinal hernia of right emma e without obstruction or gangrene 04/14/2021 Portal hypertension (HCC) 10/10/2019 Macrocytic anemia 02/02/2020 Insomnia 08/30/2019 Inguinal hernia without obst ruction or gangrene 02/08/2024 Family History Medical History Relation Name Comments No Known Problems Brother No Known Problems Father No Known Problems Mother Arthritis Other Gout Other Stroke Other Anesthesia problems Neg Hx Relation Name Status Comments Brother Alive Father Alive Mother Alive Other Social History Tobacco Use Types Packs/Day Years Used Date Smoking Tobacco: Every Day Cigarettes 0.3 45.3 Started: 1979 Passive Smoke Exposure: Never Smokeless Tobacco: Never Tobacco Cessation:Ready to Q uit: Not Asked; Counseling Given: Not Answered Alcohol Use Standard Drinks/Week Comments Not Currently 0 (1 standard drink = 0.6 oz pure alcohol) Heavy use of alcohol but quit in 2018 AUDIT-C Answer Date Recorded Q1: How often do you have a drink containing alcohol? Never 06/10/2024 Q2: How many drinks containi ng alcohol do you have on a typical day when you are drinking? Patient does not drink Q3: How often do you have si x or more drinks on one occasion? Never 06/10/2024 PHQ-2 Answer Date Recorded PHQ-2 Total Score (If total score is 3 or more points, staff should administer the PHQ-9) 0 09/19/2024 Personal Safety Answer Date Recorded Have you ever been in or are you currently in a harmful physical or emotional relationship or is someone making you feel afraid or unsafe? 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 Not on file Not on file Not on f ile Obstetrics History Last Filed Vital Signs Vital Sign Reading Time Taken Comments Blood Pressure 98/58 09/19/2024 2:39 PM CDT Pulse 80 09/19/2024 2:39 PM CDT Temperature 36.8 C (98.3 F) 09/19/2024 2:39 PM CDT Respiratory Rate 18 09/19/2024 2:39 PM CDT Oxygen Saturation 97% 09/19/2024 2:39 PM CDT Inhaled Oxygen Concentration - - Weight 91.6 kg (202 lb) 09/19/2024 2:39 PM CDT Height 180.3 cm (5' 11 ) 09/19/2024 2:39 PM CDT Body Mass Index 28.17 09/19/2024 2:39 PM CDT Plan of Treatment Health Maintenance Due Date Last Done Comments Colon Cancer Screening-Colonoscopy 1960 Prostate Cancer Screening-PSA 1960 DTaP/Tdap/Td Vaccine (1 - Tdap) 08/29/1971 Zoster Vaccine (1 of 2) 2010 Regular Well Visit/Exam 18-64 08/16/2024 08/17/2023 Depression Screening 09/19/2025 09/19/2024, 02/15/2024, 08/17/2023, Additional history exists Hepatitis C Screening Completed 08/07/2018 Influenza Vaccine Completed 03/13/2024, , 05/14/2022, Additional history exists Pneumococcal vaccine <65 Completed 04/03/2024 Medical Devices Implanted Type Area Grinder Carbon Plant Device Identifier Shelf Expiration Date Model / Serial / Lot [employer] Mesh Surgical Mid Anatomical Synthetic Patch 3dmax 5x7in [id number] - Sn/A - [id number] Implanted:Qty: 1 on 07/04/2024 by Reinaldo Moore MD at [facility] Mesh Right: Abdomen [employer] 10/07/2028 [id number] / N/A / [id number] Shunt N/A: Liver Insurance [facility] Address: [address] [address] [facility] MEDICARE ADVANTAGE [facility] Address: [address] [address] [place] [address] [employer] [facility] MEDIC[facility] ADVANTAGE [facility] Address: [address] [address] [place] [address] [employer] Care Teams Data Entry Relationship Specialty Start Date End Date Jillian Jimenez NP [address] [address] PCP - General Family Medicine 02/15/24 Lei Moreno MD Consulting Physician Gastroenterology 04/14/21 Elmer Black DO [address] [place] [id number] Medical Oncologist/Hematologi Hematology and Oncology 04/14/21 Sabina Bautista MD [address] [place] [address] [address] [place] [address] General Surgery 08/19/21
--- OUTSIDE RECORDS SUMMARY | 2024-10-09 14:40 | XMS_ITS | Clinical Summary ---
Author Organization [facility] Address [address] [address] Phone Care Team Providers Care Heat Treat Operator Name Role Phone Matty Llamas Primary Care Provider [phone] Allergies Active Allergy Reactions Criticality Noted Date Comments Albumin (Human) Rash 07/25/2019 Medications Multiple Vitamin (MULTI-VITAMIN PO) Take 1 Tab by mouth daily. Active Acetaminophen (TYLENOL PO) Take 500 mg by mouth Daily as needed. Active diphenhydrAMINE (BENADRYL ALLERGY) 25 MG Capsule Take 1 Cap by mouth every 6 hours as needed for Itching. 100 Cap 04/03/2019 Active HYDROcodone-acet aminophen (NORCO) 10-325 MG Tablet Take 1 Tab by mouth 3 times daily. Active calcium carbonate (TUMS) 500 MG Chewable Tablet Take 1 Tab by mouth daily. Active Docusate Calcium (STOOL SOFTENER PO) Take 1 Tab by mouth 2 times daily as needed. Active spironolactone (ALDACTONE) 50 MG Tablet Take 1 Tab by mouth daily. 30 Tab 6 06/26/2019 Active Azithromycin (ZITHROMAX Z-NAMAN PO) Take 1 Tab by mouth daily. Active Benzonatate (TESSALON PERLES PO) Take 1 Tab by mouth every 4 hours as needed. Active famotidine (PEPCID) 20 MG Tablet Take 1 Tab by mouth 2 times daily. 90 Tab 09/06/2019 Active Immunizations Immunization Administration Dates Next Due Albumin IV 07/01/2019,06/14/2019 Family History Medical History Relation Name Comments No Known Problems Father No Known Problems Mother Relation Name Status Comments Father Alive Mother Alive Social History Tobacco Use Types Packs/Day Years Used Date Smoking Tobacco: Every Day Cigarettes Smokeless Tobacco: Never Tobacco Cessation:Ready to Q uit: No Alcohol Use Standard Drinks/Week Comments Not Currently 0 (1 standard drink = 0.6 oz pure alcohol) Pt states he used to drink 8-9 beers a day now only drinks 2 a night AUDIT-C Answer Date Recorded Frequency of Alcohol Consumption Not on file 02/01/2019 Average Number of Drinks 1 or 2 019 Frequency of Binge Drinking Daily or almost prisca y 02/01/2019 Sex and Gender Information Value Date Recorded Sex Assigned at Not on file Legal Sex Male 12:57 PM CDT Gender Identity Not on file Sexual Orientation Not on file Last Filed Vital Signs Vital Sign Reading Time Taken Comments Blood Pressure 91/58 08/01/2019 11:20 AM ELECTROENCEPHALOGRAPHIC TECHNOLOGIST Pulse 69 08/01/2019 11:20 AM ELECTROENCEPHALOGRAPHIC TECHNOLOGIST Temperature 36.8 C (98.2 F) 08/01/2019 11:20 AM ELECTROENCEPHALOGRAPHIC TECHNOLOGIST Respiratory Rate 16 08/01/2019 11:20 AM ELECTROENCEPHALOGRAPHIC TECHNOLOGIST Oxygen Saturation 97% 08/01/2019 11:20 AM ELECTROENCEPHALOGRAPHIC TECHNOLOGIST Inhaled Oxygen Concentration - - Weight 88 kg (194 lb) 07/25/2019 10:08 AM ELECTROENCEPHALOGRAPHIC TECHNOLOGIST Height 180.3 cm (5' 11 ) 07/25/2019 10:08 AM ELECTROENCEPHALOGRAPHIC TECHNOLOGIST Body Mass Index 27.06 07/25/2019 10:08 AM ELECTROENCEPHALOGRAPHIC TECHNOLOGIST Plan of Treatment Health Maintenance Due Date Last Done Comments TdaP Immunization 1960 Colonoscopy 2005 Colorectal Cancer Screening 2005 Cologuard 2010 Immunochemical Fecal Occult Blood 2010 Pneumococcal Immunization (5 0+ years) (1 of 1 - PCV) 2010 Zoster Immunization (1 of 2) 2010 SARS-COV-2 Immunization (1 - 2023-25 season) 2024 Influenza Immunization (Seas on Ended) 2025 Respiratory Syncytial Virus (RSV) Immunization (Adult) (1 - 1-dose 75+ series) 08/29/2035 Hepatitis C Virus (HCV) Screening Completed 019 Hepatitis B Immunization Aged Out No longer eligible based on patient's age to complete this topic Meningococcal Immunization (ACWY) Aged Out No longer eligible based on patient's age to complete this topic Rotavirus Immunization Aged Out No lo nger eligible based on patient's age to complete this topic Procedures Procedure Name Priority Date/Time Associated Diagnosis Comments HEPATITIS PANEL ACUTE (AHP) Routine 02/06/2019 2:27 PM CDT Liver lesion Alcoholic cirrhosis of liver with ascites (HCC) from Last 3 Months or Most Recently Relevant to Health Maintenance Results * HEPATITIS PANEL ACUTE (AHP) (02/06/2019 2:27 PM CDT) HEPATITIS A IGM ANTIBODY NON DETECTED NON DETECTED 02/06/2019 10:02 PM CDT [facility] Comment: IGM Antibodies to HAV not detected. Does not exclude early acute or recovered HAV infection. HEP B CORE AB (IGM) NON DETECTED NON DETECTED 02/06/2019 10:02 PM CDT [facility] Comment: IGM anti-HBC not detected. Does not exclude the possibility of exposure to or infection with HBV. HEPATITIS B SURFACE ANTIGEN NON DETECTED NON DETECTED 02/06/2019 10:02 PM CDT [facility] Comment: A nonreactive test result does not exclude the possibility of exposure to or infection with Hepatitis B virus. A nonreactive test result in individuals with prior exposure to hepatitis B may be due to antigen levels below the detection limit of this assay or lack of antigen reactivity to the antibodies in this assay. hepatitis C antibody 0.12 <1 S/CO 02/06/2019 10:02 PM CDT [facility] Comment: Signal/Cutoff ratio < 0.79 is Nondetected Signal/Cutoff ratio 0.80-0.99 is Grayzone Signal/Cutoff ratio > 0.99 is Detected Supplemental assays are recommended if signal/cutoff ratio is >/=1.00. Signal/cutoff ratio result >/= 5.00 is 97% predictive of positivity for recombinant immunoblot assay (RIBA) and will be reported to the [place] Department of Public [facility] as required. Blood specimen (specimen) Butterfly Puncture / Unknown 02/06/2019 2:27 PM CDT 02/06/2019 3:48 PM CDT us Andrew King MD HEMATOLOGY ORDERABLES F inal Result [facility] [address] [place] [address], [place] from Last 3 Months or Most Recently Relevant to Health Maintenance Insurance MEDICAID [place] Care Teams Heat Treat Operator Relationship Specialty Start Date End Date Matty Llamas [address] [place] [address] PCP - General Family Medicine 03/09/19
--- OUTSIDE RECORDS SUMMARY | 2024-10-09 14:40 | XMS_ITS | Clinical Summary ---
Author Organization [facility] Address [facility] [place] [address] Care Team Providers Care Human Services Manager Name Role Phone Unavailable Primary Care Provider Unavailabl e Medications atorvastatin (LIPITOR) 40 MG tablet Take 1 tablet (40 mg total) by mouth nightly at bedtime. 02/22/2023 Active spironolactone (ALDACTONE) 100 MG tablet Take 1 tablet (100 mg total) by mouth daily. 01/28/2023 Active Social History Tobacco Use Types Packs/Day Years Used Date Smoking Tobacco: Never Assessed Sex and Gender Information Value Date Recorded Sex Assigned at Not on file Legal Sex Male 1:51 PM CDT Gender Identity Not on file Sexual Orientation Not on file Plan of Treatment Health Maintenance Due Date Last Done Comments Colorectal Cancer Screening Colonoscopy (10 Years) 1960 Annual Physical 08/29/1963 Hepatitis C 1978 DTaP, Tdap and Td Vaccines ( 1 - Tdap) 08/29/1979 Pneumococcal Vaccine: 50+ Ye ars (1 of 1 - PCV) 2010 Zoster Vaccines (1 of 2) 2010 COVID-19 Vaccine ( - 2023-2 5 season) 2024 RSV Immunization or 60+ Years (1 - 1-dose 75+ series) 08/29/2035 Meningococcal B Vaccine Aged Out No l onger eligible based on patient's age to complete this topic Meningococcal Vaccine Aged Out No sis lashonda eligible based on patient's age to complete this topic RSV Immunizations Under 20 Months Aged Out No longer eligible based on patient's age to complete this topic
--- OUTSIDE RECORDS SUMMARY | 2024-10-09 14:40 | XMS_ITS | Clinical Summary ---
Author Organization [facility] Address [address] [place] [address] Care Team Providers Care Terrazzo Tile Maker Name Role Phone Carlie Alva RN Unavailable Unavailable Elmer Black DO Unavailable [phone] Sonido Gaming MD Unavailable [phone] Federico Ramos MD Unavailable [phone] Rafa Garsia MD Primary Care Provider [phone] Source Comments [facility],non-owned Affiliates and Associated Physician Practices is amultiple site organization consisting of ambulatory clinics and hospital sitesin [place], [place], [place] and [place]. This disclosure is being madepursuant to the Care Everywhere program and may not contain all information available regarding this patient. Last updated 18.[facility] Allergies Active Allergy Reactions Criticality Noted Date Comments Albumin Urticaria,Itching High 07/02/2019 hypotension Albumin Human Other,Itching,Rash,S well ing High 06/17/2019 Only happened one time to him/ states you could use it if came down to an emergency Clindamycin Other,Diarrhea Low 01/26/2023 Severe abdominal pain Penicillins Other,Diarrhea Low 01/26/2023 Severe abdominal pain Medications * Be aware that medications may not be up to date on this document. Alwaysverify current medications with the patient. docusate sodium (COLACE) 100 MG capsule Take 1 (one) capsule by mouth 2 times daily Active Multiple Vitamins-[place] als (ONE DAILY MULTIVIT-MIN ADULT) TABS Take 2 capsules by mouth once daily Active benzocaine (MAXIMUM STRENGTH ORAJEL) 20 % gel Take by mouth as needed for Pain Active Oxymetazoline HCl-Menthol (AFRIN MENTHOL SPRAY NA) Western into the nose as needed Active Lidocaine-Ment hol 4-1 % CREA by Apply externally route as needed Active Methylcobalami n (METHYL B-12) 1000 MCG LOZG Take 1 tablet by mouth once daily Active Pyridoxine HCl (BL VITAMIN B-6 PO) Take 1.5 mg by mouth Active tiZANidine (Zanaflex) 4 MG tablet Take 1 (one) tablet by mouth every 8 hours as needed 2 Active acetaminophen (Tylenol) 500 MG tablet Take 1 (one) tablet by mouth every 6 hours as needed for Fever or Pain Maximum allowable Acetaminophen amount = 4 Grams (4000 mg) / 24 hours. 30 tablet 1 3 Active LORazepam (Ativan) 0.5 MG tablet Take 0.5 (one-half) tablet by mouth once daily as needed 3 Active polyethylene glycol 3350 (Miralax) 17 GM/SCOOP powder Take 17 (seventeen) g by mouth as needed Active calcium carbonate (Tums Ultra) 1000 MG chew tablet Take 1 (one) tablet by mouth daily with food Active Simethicone (Gas-X) 125 MG chew tablet Take 1 (one) tablet by mouth 4 times daily as needed Active ZINC PICOLINATE PO Take 22 mg by mouth Active furosemide (Lasix) 20 MG tablet Take 1 (one) tablet by mouth once daily 90 tablet 3 4 Active ascorbic acid (VITAMIN C) 500 MG tablet Take 1 (one) tablet by mouth as needed Active atorvastatin (Lipitor) 40 MG tablet TAKE 1 TABLET BY MOUTH AT BEDTIME 90 tablet 3 4 Active spironolactone (Aldactone) 100 MG tablet Take 1 (one) tablet by mouth once daily 90 tablet 3 4 05/13/20 25 Active Active Problems Problem Noted Date Diagnosed Date Therapeutic opioid-induced constipation (OIC) Cardiac arrest 04/14/2021 Overview (11/24/2021): Last Assessment & Plan: SP PEA arrest [...] outweighs benefit then proceed. Assessment & Plan (09/07/2021 12:16 PM CDT): SP PEA arrest in the setting of [...] time. If risk outweighs benefit then proceed. OSH ECHO with normal EF Assessment & Plan (03/03/2020 1:04 PM CDT): SP PEA arrest in the setting of hypotension. On midodrine and denies reoccurence of syncope or presyncope. Weaned Midodrine to 5mg TID this summer. SBP stable on 5mg TID. PT has not had any SBP less than 90. Will stop Midodrine 5mg TID. Ok to use as needed PRN for dizziness and LH, with SBP less than 90. Assessment & Plan (10/07/2019 11:02 AM CDT): SP PEA arrest in the setting of hypotension. On midodrine and denies reoccurence of syncope or presyncope. Inguinal hernia of right emma e without obstruction or gangrene 04/14/2021 S/P TIPS (transjugular intrahepatic portosystemi c shunt) 08/06/2020 Thrombocytopenia, secondary 02/02/2020 Other ascites 10/10/2019 Portal hypertension 10/10/2019 Coronary artery disease, non-occlusive 0 Assessment & Plan (03/03/2020 1:25 PM CDT): Stable denies chest pain, coninue ASA and statin. FLP in November WNL. No changes. Assessment & Plan (10/07/2019 11:04 AM CDT): Stable denies chest pain, coninue ASA and stating. FLP in 2 months. Alcoholic cirrhosis of liver with ascites 2018 Elevated troponin Immunizations Immunization Administration Dates Next Due HEP A/HEP B 03/08/2023,03/30/2022,11/24/2021 HIB VACCINE 07/01/2019,06/14/2019 INFLUENZA VACCINE 03/30/2022, 1,07/01/2019,2019 INFLUENZA VACCINE, QUADR. (F LUZONE; FLULAVAL; FLUARIX; AFLURIA QUADRIVALENT; 6MO+), 0.5 ML (IIV4) 03/08/2023,05/14/2022 Family History Medical History Relation Name Comments Arthritis - Rheumatoid Father Anxiety Disorder Mother Dementia Mother Relation Name Status Comments Father Mother Social History Tobacco Use Types Packs/Day Years Used Date Smoking Tobacco: Some Days Cigarettes 0.5 40 Smokeless Tobacco: Never Tobacco Cessation:Ready to Q uit: Not Asked; Counseling Given: Not Answered Comments:attempting to quit proir to surgical procedure, currently 1-2 ocassionally Alcohol Use Standard Drinks/Week Comments Not Currently 0 (1 standard drink = 0.6 oz pure alcohol) 6 beers and 3 bourbon stopped 02/16/19 Sex and Gender Information Value Date Recorded Sex Assigned at Male 10/15/2020 4:21 PM CDT Legal Sex Male 1:09 PM CDT Gender Identity Male 10/15/2020 4:21 PM CDT Sexual Orientation Straight 10/15/2020 4: 21 PM CDT Last Filed Vital Signs Vital Sign Reading Time Taken Comments Blood Pressure 124/82 08/31/2023 3:03 PM CDT Pulse 87 08/31/2023 3:03 PM CDT Temperature 36.7 C (98 F) 03/08/2023 11:42 AM CDT Respiratory Rate 19 09/22/2022 3:45 PM CDT Oxygen Saturation 98% 08/31/2023 3:03 PM CDT Inhaled Oxygen Concentration 21% 09/22/2022 1 :15 PM CDT Weight 91.6 kg (202 lb) 08/31/2023 3:03 PM CDT Height 180.3 cm (5' 11 ) 08/31/2023 3:03 PM CDT Body Mass Index 28.17 08/31/2023 3:03 PM CDT Plan of Treatment Health Maintenance Due Date Last Done Comments COLOGUARD (AGES 45-75) - COLON CA SCREENING 1960 COLON MONITORING 1960 COLONOSCOPY - COLON CA SCREENING 1960 CT COLONOGRAPHY - COLON CA SCREENING 1960 Colorectal Cancer Screening 1960 FIT - COLON CA SCREENING 1960 FLEX SIG - COLON CA SCREENING 1960 HIV SCREENING 08/29/1975 DTAP/TDAP/TD VACCINES (1 - Tdap) 08/29/1979 PNEUMOCOCCAL VACCINE 50+ (1 of 2 - PCV) 08/29/1979 LUNG CANCER SCREENING 2010 ZOSTER VACCINE (1 of 2) 2010 Respiratory Syncytial Virus (RSV) Vaccine Pt: or over 60 yrs (1 - Risk 60-74 years 1-dose series) 2020 COVID-19 VACCINE (1 - season) 2024 DEPRESSION SCREENING 06/12/2024 MEDICARE AWV CALENDAR YEAR 2024 INFLUENZA VACCINE (Season Ended) 2025 03/08/2023, 05/14/2022, 03/30/2022, Additional history exists SCREENING FOR DIABETES 09/27/2026 4, 12/15/2022, 09/08/2022, Additional history exists HEPATITIS C SCREENING Completed 02/06/2019, 019 HIB VACCINE Aged Out 07/01/2019, 06/14/2019 No lo nger eligible based on patient's age to complete this topic HEPATITIS A VACCINE Completed 03/08/2023, 03/30/2022, 11/24/2021 HEPATITIS B VACCINE Completed 03/08/2023, 03/30/2022, 11/24/2021 HPV VACCINE Aged Out No longer eligi ble based on patient's age to complete this topic MENINGOCOCCAL (Group B) VACCINE SHARED DECISION-MAKING Aged Out No longer eligible based on patient's age to complete this topic MENINGOCOCCAL GROUPS A/C/Y/W VACCINE Aged Out No longer eligible based on patient's age to complete this topic Goals Goal Patient Goal Type Associated Problems Recent Progress Patient-Stated? Author Medication Management General On track( 023 11:53 AM CDT) No Carlie Alva, RN Note: Expected end date: ongoing Interventions: Take all medications as prescribed Let your doctor know right away about any changes in your medications Make sure to request a refill of your medication at least one week prior to your last dose Safety General On track( 022 10:51 AM CDT) No Carlie Alva, CORA Note: Expected end date: ongoing Interventions: Your nurse will assess your risk for falls/injury each visit Make sure appropriate safety devices are available and within reach Be aware of medications that could predispose you to falling Wear non-skid/rubber sole footwear Wear glasses/hearing aid Keep personal items within easy reach Use some light at night in your room Medical Devices Implanted Type Area Self Pay Specialist Device Identifier Shelf Expiration Date Model / Serial / Lot Stent Eprsth 7cm 8-10mm [place] Vtr 2cm - [id number] Implanted:Qty: 1 on 08/09/2019 by Kiah Painter MD at [facility] [employer] [place] [employer] 12/30/2021 [id number] / [id number] / Stent Trchbr 10mm 7fr 38mm 80cm Cvr Cath Implanted:Qty: 1 on 08/22/2019 at [facility] [employer] [place] [employer] 09/07/2022 [id number] / / [id number] Procedures Procedure Name Priority Date/Time Associated Diagnosis Comments BASIC METABOLIC PANEL (CALCIUM TOTAL) 09/28/2023 3:33 PM CDT from Last 3 Months or Most Recently Relevant to Health Maintenance Results * (ABNORMAL) BASIC METABOLIC PANEL (CALCIUM TOTAL) (09/28/2023 3:33 PM CDT) Glucose 118(H) 65 - 99 mg/dL [facility] Comment: Fasting reference interval For someone without known diabetes, a glucose value between 100 and 125 mg/dL is consistent with prediabetes and should be confirmed with a follow-up test. BUN 18 7 - 25 mg/dL [facility] Creatinine 0.99 0.70 - 1.35 mg/dL [facility] eGFR by Cystatin C 86 > OR = 60 mL/min/1. 73m2 [facility] BUN/Creatinine Ratio SEE NOTE: 6 - (calc) [facility] Comment: Not Reported: BUN and Creatinine are within reference range. Sodium 135 135 - 146 mmol/L [facility] Potassium 4.3 3.5 - 5.3 mmol/L [facility] Chloride 101 98 - 110 mmol/L [facility] CO2 23 20 - 32 mmol/L [facility] Calcium 9.4 8.6 - 10.3 mg/dL [facility] Comment: Test Performed at: [id number] [id number] FATEMEH CHAPMAN MD 09/28/2023 3:33 PM CDT 09/28/2023 3:33 PM CDT Sahara Tafoya PA-C LAB - CHEMISTRY ORDERAB LES Final Result [facility] [address] [place] [id number] from Last 3 Months or Most Recently Relevant to Health Maintenance Insurance MEDICAID - [place] [facility] MANAGED MEDICARE ADV Advance Directives * Full Code (Latest Code Status on File) Date Activated Date Inactivated Comments 08/29/2019 5:40 AM 09/06/2019 4:46 PM * Full Code Date Activated Date Inactivated Comments 08/09/2019 2:54 PM 2019 7:09 PM Care Teams Terrazzo Tile Maker Relationship Specialty Start Date End Date Rafa Garsia MD [address] [facility] [address] [place] [id number] PCP - General 11/22/21 Carlie Alva, CORA Registered Nurse 05/29/19 Elmer Black DO [address] [facility] [address] [place] [address] Hematology 03/16/20 Sonido Gaming MD [address] [facility] [address] [place] [address] Cardiovascular Disease 03/16/20 Federico Ramos MD [address] [place] [address] Neurology 03/16/20
--- OUTSIDE RECORDS SUMMARY | 2024-10-09 14:40 | XMS_ITS | Clinical Summary ---
Author Organization [facility] Address [address] [place] [address] Phone Care Team Providers Care Battalion Chief Name Role Phone Unavailable Primary Care Provider Unavailabl e Allergies Active Allergy Reactions Criticality Noted Date Comments Amoxicillin Abdominal Pain Low 01/26/2023 Clindamycin Abdominal Pain Low 01/26/2023 Penicillins Abdominal Pain Low 01/26/2023 Medications SPIRONOLACTONE ORAL Take 100 mg by mouth daily. Active FUROSEMIDE ORAL Take 40 mg by mouth daily. Active tizanidine HCl (TIZANIDINE ORAL) Take 3 mg by mouth daily at bedtime. Active benzocaine 20 % Gel Active atorvastatin (LIPITOR) 40 mg tablet Take 40 mg by mouth daily. Active docusate sodium (COLACE) 100 mg capsule Take 100 mg by mouth 2 times daily. Active calcium as carbonate (TUMS) 500 mg (200 mg elemental) Tablet, Chewable Take 400 mg by mouth daily. Active acetaminophen (TYLENOL) 500 mg tablet Take 500 mg by mouth every 6 hours as needed for Pain. Active cyanocobalamin 1,000 mcg Tablet Take 1,000 mcg by mouth daily. Active multivitamin (DAILY-JACKY) tablet Take 1 Tablet by mouth daily. Active simethicone 125 mg Tablet, Chewable Take 125 mg by mouth every 6 hours as needed for Gas. Active MFOLATE CALCIUM-MECOBAL OSPINA ORAL Take 409 mcg by mouth daily. Active pyridoxine (VITAMIN B6) 500 mg Tablet Take 100 mg by mouth daily. Active oxymetazoline (AFRIN) 0.05 % [place], Non-Aerosol Administer 2 Sprays in each nostril 2 times daily. Up to 3 days Active melatonin 5 mg Tablet Take 5 mg by mouth nightly as needed for Insomnia. Active polyethylene glycol 3350 (MIRALAX) 17 gram/dose Powder Take 17 Grams by mouth daily. Dissolve in 8 ounces of fluid and drink entire liquid Active LORAZEPAM ORAL Take by mouth. Active benzonatate (TESSALON ORAL) Take by mouth. Active diphenhydramine HCl (BENADRYL ORAL) Take by mouth. Activ e PNV [id number] HYLFOLATE ORAL Take by mouth. Active ZINC PICOLINATE ORAL Take by mouth. Activ e ascorbic acid (VITAMIN C ORAL) Take by mouth. Activ e acetaminophen-c odeine (TYLENOL #3) 300-30 mg tabletIndicatio ns:Caries involving multiple surfaces of tooth Take 1 Tablet by mouth every 4 hours as needed for Pain, Moderate. 20 Tablet 02/02/2023 6:30 PM CDT Active Active Problems Problem Noted Date Diagnosed Date Caries involving multiple surfaces of tooth 01/10 Social History Tobacco Use Types Packs/Day Years Used Date Smoking Tobacco: Every Day Cigarettes 0.5 40 Smokeless Tobacco: Never Alcohol Use Standard Drinks/Week Comments Not Currently 0 (1 standard drink = 0.6 oz pur e alcohol) Feeling Safe Answer Date Recorded Are you in a relationship wi th someone who hurts you emotionally and/or physically? Unable to obtain 02/02/2023 Food Insecurity Answer Date Recorded Social/Environmental Concerns No concerns Transportation Needs Answer Date Record ed Social/Environmental Concerns No concerns Housing Stability Answer Date Recorded Social/Environmental Concerns No concerns Utility Needs Answer Date Recorded Social/Environmental Concerns No concerns Sex and Gender Information Value Date Recorded Sex Assigned at Male 02/16/2023 2:41 PM CDT Legal Sex Male 10:56 AM CDT Gender Identity Male 02/16/2023 2:41 PM CDT Sexual Orientation Straight 02/16/2023 2: 41 PM CDT Last Filed Vital Signs Vital Sign Reading Time Taken Comments Blood Pressure 144/86 02/02/2023 7:20 PM CDT Pulse 76 02/02/2023 7:20 PM CDT Temperature 36.1 C (97 F) 02/02/2023 7:20 PM CDT Respiratory Rate 15 02/02/2023 7:20 PM CDT Oxygen Saturation 97% 02/02/2023 7:20 PM CDT Inhaled Oxygen Concentration - - Weight 91.9 kg (202 lb 8 oz) 02/02/2023 2:18 PM CDT Height 180.3 cm (5' 11 ) 01/26/2023 3:33 PM CDT Body Mass Index 28.24 01/26/2023 3:33 PM CDT Plan of Treatment Health Maintenance Due Date Last Done Comments DTAP/TDAP/TD VACCINES (1 - Tdap) 08/29/1979 COLORECTAL SCREENING 2005 Colorectal Cancer Screening 2005 FIT-DNA Q 3 years 2005 FIT/FOBT Q 1 year 2005 Flex Sig/CT Colonography Q 5 years 2005 ZOSTER VACCINE (1 of 2) 2010 RSV VACCINE (60+ or ) (1 - Risk 60-74 years 1-dose series) 2020 INFLUENZA VACCINE (#1) 2024 05/14/2022 Medical Devices Implanted Type Area Carpentry Teacher Device Identifier Shelf Expiration Date Model / Serial / Lot Shunts In Liver Liver Insurance RX [employer] RX Member Subscriber Plan / Payer (Ef fective for All Dates) Name:Anthony Harrison Relation to Subscriber:Self Name:Anthony Harrison Subscriber ID:Not on file Payer ID:Not on file Group ID:[id number] Type:RX Medicare Part D Address: [address] Advance Directives For more information, please contact: [phone] * Full Code (Latest Code Status on File) Date Activated Date Inactivated Comments 02/02/2023 1:43 PM 02/02/2023 10:03 PM
--- OUTSIDE RECORDS SUMMARY | 2024-10-09 14:40 | XMS_ITS | Encounter Summary ---
Author Organization [facility] Address [address] [place] [address] Care Team Providers Care Manager Pet Name Role Phone Unavailable Primary Care Provider Unavailabl e Prior Encounters Date Type Department Care Team Description 06/15/2022 1:15 PM K [employer] PROF[employer]AL Consult [facility] [address] [place] [phone] Arleen Montoya DDS Plan of Treatment Not on file Procedures Procedure Name Priority Date/Time Associated Diagnosis Comments ORAL SURG CONSULT Routine 06/15/2022 1:15 PM K [employer] PROF[employer] Visit Diagnoses Not on file Insurance [employer] PPO
--- OUTSIDE RECORDS SUMMARY | 2024-10-09 14:40 | XMS_ITS | Clinical Summary ---
Author Organization [facility] Address [address] [place] [address] Care Team Providers Care Security System Sales Consultant Name Role Phone Unavailable Primary Care Provider Unavailabl e Allergies Active Allergy Reactions Criticality Noted Date Comments Albumin Human Rash Low 07/25/2019 Medications acetaminophen (TYLENOL) 500 mg tablet Take 500 mg by mouth every 4 (four) hours if needed. Active atorvastatin (LIPITOR) 40 mg tablet Take 40 mg by mouth. 07/15/2019 Active azithromycin (ZITHROMAX) 250 mg tablet TAKE 2 TABLETS BY MOUTH ON DAY 1, AND THEN TAKE 1 TABLET BY MOUTH ONCE A DAY ON DAY 2 THROUGH DAY 5 05/23/2022 Active buprenorphine (BUTRANS) 20 mcg/hour Place 1 patch on the skin. 12/14/2021 Active calcium carbonate (TUMS) 200 mg calcium (500 mg) chewable tablet Chew 1 tablet 1 (one) time each day. Active cyanocobalamin, vitamin B-12, 5,000 mcg tablet, sublingual Place under the tongue. Active docusate sodium (COLACE) 100 mg capsule Take 100 mg by mouth in the morning and 100 mg in the evening. Active hydrOXYzine HCL (ATARAX) 25 mg tablet Take 25 mg by mouth. 12/25/2021 Active melatonin 10 mg tablet Take 5 mg by mouth 1 (one) time each day. Active mupirocin (BACTROBAN) 2 % ointment APPLY TO THE AFFECTED AREA(S) TWICE DAILY 03/16/2022 Active polyethylene glycol (GLYCOLAX) 17 gram/dose powder Take 17 g by mouth 1 (one) time each day if needed. 06/14/2020 Active spironolactone (ALDACTONE) 100 mg tablet Take 1 tablet by mouth 1 (one) time each day. 04/12/2019 Active simethicone (MYLICON) 125 mg chewable tablet Chew 125 mg 4 (four) times a day if needed. Active Active Problems Problem Noted Date Diagnosed Date Therapeutic opioid-induced constipation (OIC) Lumbosacral spondylosis without myelopathy 06/14 Chronic bilateral low back pain without sciatica 05/10/2021 Overview (06/15/2022): Last Assessment & Plan: It has been relayed to Anthony previously [...] social Long-term current use of opiate analgesic 2020 Lumbar facet joint syndrome 05/10/2021 Well adult exam 04/18/2021 Cardiac arrest 04/14/2021 Overview (06/15/2022): Last Assessment & Plan: SP PEA arrest [...] time. If risk outweighs benefit then proceed. Last Assessment & Plan: SP PEA arrest [...] time. If risk outweighs benefit then proceed. Last Assessment & Plan: SP PEA arrest [...] then proceed. OSH ECHO with normal EF Inguinal hernia of right emma e without obstruction or gangrene 04/14/2021 S/P TIPS (transjugular intrahepatic portosystemi c shunt) 08/06/2020 Macrocytic anemia 02/02/2020 Thrombocytopenia, secondary 02/02/2020 Other ascites 10/10/2019 Portal hypertension 10/10/2019 Coronary artery disease, non-occlusive 0 Overview (06/15/2022): Last Assessment & Plan: Stable denies chest pain, coninue ASA and statin. FLP in November WNL. No changes. Last Assessment & Plan: Stable denies chest pain, coninue ASA and statin. FLP in November WNL. No changes. Hypotension 08/30/2019 Insomnia 08/30/2019 Anxiety due to invasive procedure 08/11/2019 Alcoholic cirrhosis of liver with ascites 2018 Hepatic cirrhosis 05/15/2019 Social History Tobacco Use Types Packs/Day Years Used Date Smoking Tobacco: Never Assessed Sex and Gender Information Value Date Recorded Sex Assigned at Not on file Legal Sex Male 11:35 AM PDT Gender Identity Not on file Sexual Orientation Not on file Plan of Treatment Health Maintenance Due Date Last Done Comments Dental Oral Exam 1960 Dental Prophylaxis 1960 Dental X-Ray: Bitewings 1960 Dental X-Ray: Full Mouth 1960 Dental X-Ray: Panoramic 06/18/2025 06/17/2022 Meningococcal B Vaccine Aged Out No l onger eligible based on patient's age to complete this topic Insurance [facility] [address] PPO
--- OUTSIDE RECORDS SUMMARY | 2024-10-09 14:40 | XMS_ITS | Referral Summary ---
Author Organization [facility] [address] Address [address] [place] [address] Care Team Providers Care Gray Mixing Operator Name Role Phone Lei Moreno MD Unavailable Elmer Black DO Unavailable [phone] Sabina Bautista MD Unavailable Jillian Jimenez NP Primary Care Provider Encounters Date Type Department Care Team Description 09/25/2024 2:00 PM CDT Office Visit [facility]) - [facility] Urology [address] [place] [address] 11th [place] [address] [place] [address] Louie Anne MD Acquired buried penis (Primary Dx) 09/19/2024 3:00 PM CDT Office Visit [facility] Primary Care at [address] [phone] Jillian Jimenez NP Mixed hyperlipidemia (Primary Dx); Alcoholic cirrhosis of liver with ascites (HCC); Thrombocytopenia, secondary; Elevated glucose 09/17/2024 Telephone [facility] Gastroenterology [facility] 12th [place] [address] [place] [address] Scan 09/05/2024 Telephone [facility]) [facility] Minimally Invasive Surgery [address] [facility] [address]th Floor, [place] [address] Sergey Caleroise ELENA Nieto 09/04/2024 Telephone [facility]) [facility] Minimally Invasive Surgery [address] [place] [address] Floor, [place] [address] Peña Jones MD PhD Medical Question/Miscellaneous 2024 [facility]) [facility] Minimally Invasive Surgery [address] [place] [address] Floor, [place] [address] Peña Jones MD PhD Request For Order(s) 08/22/2024 Orders Only [facility] Gastroenterology [address] [place] [address] [place] [address] Cherry Gregory, RN Alcoholic cirrhosis of liver with ascites (HCC) 08/21/2024 Telephone [facility]) [facility] Minimally Invasive Surgery [address] [place] [address], [place] [address] Reinaldo Moore MD Request For Order(s) 08/19/2024 [facility]) [facility] Minimally Invasive Surgery [address] [place] [address] Floor, [place] [address] Reinaldo Moore MD Medical Question/Miscellaneous 08/09/2024 3:00 PM LINUX SECURITY ADMINISTRATOR Office Visit [facility]) [facility] Minimally Invasive Surgery [address] [place] [address], [place] [address] Leslie Kelley, BELLO History of robot-assisted repair of right inguinal hernia (Primary Dx); Acquired buried penis; Weakness 07/31/2024 Orders Only [facility] Gastroenterology [address] [place] [address] [place] [address] Cherry Gregory, RN Alcoholic cirrhosis of liver with ascites (HCC) 07/22/2024 Orders Only [facility]) [facility] Minimally Invasive Surgery [address] [facility] [address]th [address], [place] [address] Reinaldo Moore MD Postoperative pain from Last 3 Months Allergies Active Allergy Reactions Criticality Noted Date [...] mg total) by mouth nightly 30 tablet 11 5 12/06/19 29 Active furosemide (LASIX) 20 mg tabletIndicati ons:because of hernia/ got worse when tried to reduce dose Take 1 tablet (20 mg total) by mouth every other day 15 tablet 5 Active docusate sodium (COLACE) 100 mg capsuleIndicat ions:constipat ion Take 1 capsule (100 mg total) by mouth 2 (two) times a day with a glass of water 30 capsule 5 09/20/19 25 Discontin ued(Thera py completed ) Active Problems Problem Noted Date Diagnosed Date History of right inguinal hernia repair 07/29/19 25 Mixed hyperlipidemia 08/17/2023 Assessment & Plan (09/20/2024 8:45 AM CDT): Continue lipitor 40. Order for lipid panel today. Assessment & Plan (02/15/2024 3:38 PM CDT): Lipid abnormalities are stable, reviewed previous lipid levels in [facility]. Continue statin therapy. Lipitor (atorvastatin) Order for lipid panel was given today to be obtained. Pt voiced understanding of lab drawn and continuation of current medication regimen. Assessment & Plan (08/17/2023 4:29 PM LINUX SECURITY ADMINISTRATOR): Lipid abnormalities are stable, reviewed previous lipid levels in [facility]. Pharmacotherapy as ordered. Order for lipid panel was given today to be obtained. Pt voiced understanding of lab drawn and continuation of current medication regimen. Dental caries extending into pulp 08/03/2023 Tobacco use 07/14/2022 Assessment & Plan (02/15/2024 4:33 PM CDT): He is actively working on smoking cessation. Assessment & Plan (07/14/2022 5:35 PM LINUX SECURITY ADMINISTRATOR): Chronic, encouraged and discussed cessation. Educated about the Nicotine patches, not interested in Zyban. He is wishing to hold off on CT Lung Cancer screen at this time. Chronic pain syndrome 08/20/2021 Assessment & Plan (08/20/2021 6:20 PM LINUX SECURITY ADMINISTRATOR): Planning on stepping down to 1/2 tab q6 PRN for the next month Gabapentin trial (may take as needed rather than every 8 hours on the clock) Discussed antibiotics Lumbosacral spondylosis without myelopathy 06/14 Lumbar facet joint syndrome 05/10/2021 Well adult exam 04/18/2021 Assessment & Plan (08/17/2023 3:26 PM LINUX SECURITY ADMINISTRATOR): Does not want PSA drawn today will [...] 08/06/2020 Assessment & Plan (07/13/2023 2:52 PM LINUX SECURITY ADMINISTRATOR): Due for repeat US with Doppler. Will order today Assessment & Plan (07/14/2022 5:34 PM LINUX SECURITY ADMINISTRATOR): Stable, continues follow up with GI/Saw Setter. Macrocytic anemia 02/02/2020 Assessment & Plan (07/13/2023 2:52 PM LINUX SECURITY ADMINISTRATOR): Likely secondary to cirrhosis and nutritional deficiencies. -follow up per heme -ctm Thrombocytopenia, secondary 02/02/2020 Assessment & Plan (09/20/2024 8:42 AM CDT): Lab Results Component Value Date LABPLAT 138 (L) 06/26/2024 Chronic/ stable. Assessment & Plan (07/14/2022 5:33 PM LINUX SECURITY ADMINISTRATOR): Labs ordered Coronary artery disease, non-occlusive 0 Overview (04/14/2021): Last Assessment & Plan: Stable denies chest pain, coninue ASA and statin. FLP in November WNL. No changes. Assessment & Plan (07/14/2022 5:33 PM LINUX SECURITY ADMINISTRATOR): Stable, continues current regimen and follows with Cardio. 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 Assessment & Plan (08/17/2023 3:27 PM LINUX SECURITY ADMINISTRATOR): Will renew lorazepam #10 tablets Assessment & [...] indicated. Assessment & Plan (08/17/2023 4:32 PM LINUX SECURITY ADMINISTRATOR): Managed by Dr. López. Ultrasound of abdomen scheduled August 22 Resolved Problems Problem Noted Date Diagnosed Date Resolved Date Inguinal hernia without obst ruction or gangrene 02/08/2024 08/09/2024 Therapeutic opioid-induced constipation (OIC) 12/10/1908/17/2023 Chronic bilateral low back p ain without sciatica 05/10/2021 08/17/2023 Assessment & Plan (06/06/2021 6:17 PM LINUX SECURITY ADMINISTRATOR): It has been relayed to Anthony previously [...] 05/10/2021 08/17/2023 Establishing care with jojo hargrove, nano for 04/18/2021 08/17/2023 Assessment & Plan (04/18/2021 2:59 PM LINUX SECURITY ADMINISTRATOR): A visit to establish care has been [...] proceed. Assessment & Plan (08/17/2023 4:37 PM LINUX SECURITY ADMINISTRATOR): Has had clearance for previous procedures, but will need another clearance from cardiology given history of cardiac arrest. Other ascites 10/10/2019 08/17/2023 Hypotension 08/30/2019 08/17/2023 Insomnia 08/30/2019 08/17/2023 Immunizations Immunization Administration Dates Next Due Hep A / Hep B 03/08/2023,03/30/2022,11/24/2021 HiB 07/01/2019,06/14/2019 Influenza, Quadrivalent, Spl it, Preservative Free, Intramuscular 03/08/2023,05/14/2022 Influenza, Trivalent, Preser vative Free, Intramuscular 03/13/2024 Influenza, Unspecified 03/30/2022,2021(Deferred: Patient Refused),05/31/2021(Deferred: Patient Refused),03/19/2021,07/01/2020(Deferre d: Patient Refused),04/26/2020(Deferred: Patient Refused),07/01/2019,06/14/2019 Pneumococcal Conjugate Pcv20 04/03/2024 Social History Tobacco Use Types Packs/Day Years Used Date Smoking Tobacco: Every Day Cigarettes 0.3 45.3 Started: 1979 Passive Smoke Exposure: Never Smokeless Tobacco: Never Tobacco Cessation:Ready to Q uit: Not Asked; Counseling Given: Not Answered Alcohol Use Standard Drinks/Week Comments Not Currently 0 (1 standard drink = 0.6 oz pure alcohol) Heavy use of alcohol but quit in 2019 AUDIT-C Answer Date Recorded Q1: How often [...] on file Legal Sex Male 2:14 PM LINUX SECURITY ADMINISTRATOR Gender Identity Male 01/21/2020 8:16 PM CDT Sexual Orientation Straight 01/21/2020 8: 16 PM CDT 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 Not on file Not on f ile Last Filed Vital Signs Vital Sign Reading [...] 09/19/2024 2:39 PM CDT Plan of Treatment Not on file Medical Devices Implanted Type Area Plaster Caster Device Identifier Shelf Expiration Date Model / Serial / Lot [employer] Bard Mesh Surgical Mid Anatomical Synthetic Patch 3dmax 5x7in [id number] - Sn/A - [id number] Implanted:Qty: 1 on 07/04/2024 by Reinaldo Moore MD at [facility] Mesh Right: Abdomen [employer] Bard 10/07/2028 [id number] / N/A / [id number] Shunt N/A: Liver Insurance [place] [phone] [employer] [facility] MEDICARE [facility] MEDIC[facility] Address: [address] [address] [place] [address] [employer] Care Teams Gray Mixing Operator Relationship Specialty Start Date End Date Jillian Jimenez NP [address] [address] PCP - General Family Medicine 02/15/24 Lei Moreno MD Consulting Physician Gastroenterology 04/14/21 Elmer Black DO [facility] [address] Medical Oncologist/Hematologi Hematology and Oncology 04/14/21 Sabina Bautista MD [address] [facility] [place] [address] General Surgery 08/19/21
--- OUTSIDE RECORDS SUMMARY | 2024-10-09 14:40 | XMS_ITS | Clinical Summary ---
Author Organization [facility] Address [address] [place] [address] Care Team Providers Care Caustic Pump Operator Name Role Phone Unavailable Primary Care Provider Unavailabl e Allergies Active Allergy Reactions Criticality Noted Date Comments Albumin (Human) 2019 Medications aspirin 81 MG chewable tablet Chew 1 tablet (81 mg total) daily. 0 0 Active atorvastatin (LIPITOR) 40 MG tablet Take 1 tablet (40 mg total) by mouth nightly. 30 tablet 0 Active melatonin tablet Take 1 tablet (3 mg total) by mouth nightly as needed for sleep. 0 0 Active midodrine (PROAMATINE) 10 MG tablet Take 1 tablet (10 mg total) by mouth 3 (three) times a day. 90 tablet 0 Active senna-docusate (SENOKOT-S) 8.6-50 MG Take 2 tablets by mouth 2 (two) times a day. 0 0 Active spironolactone (ALDACTONE) 25 MG tablet Take 1 tablet (25 mg total) by mouth daily. 30 tablet 0 Active triamcinolone (KENALOG) 0.025 % cream Apply topically 4 (four) times a day. 15 g 0 Active Active Problems Problem Noted Date Diagnosed Date Hypotension 08/30/2019 Insomnia 08/30/2019 Rib pain 08/30/2019 Cirrhosis of liver 2019 Alcoholic cirrhosis of liver with ascites 2018 Immunizations Immunization Administration Dates Next Due Influenza, Unspecified 2019(Deferred: Kelsie ent Refused) Family History Medical History Relation Name Comments No Known Problems Brother No Known Problems Father No Known Problems Mother Relation Name Status Comments Brother Father Mother Social History Tobacco Use Types Packs/Day Years Used Date Smoking Tobacco: Every Day Cigarettes 1.5 40 Smokeless Tobacco: Never Alcohol Use Standard Drinks/Week Comments Not Currently 0 (1 standard drink = 0.6 oz pur e alcohol) not anymore Sex and Gender Information Value Date Recorded Sex Assigned at Not on file Legal Sex Male 5:02 PM EDT Gender Identity Not on file Sexual Orientation Not on file Last Filed Vital Signs Vital Sign Reading Time Taken Comments Blood Pressure 80/52 09/06/2019 7:55 AM CDT Pulse 88 09/06/2019 7:55 AM CDT Temperature 36.4 C (97.6 F) 09/06/2019 7:55 AM CDT Respiratory Rate 18 09/06/2019 7:55 AM CDT Oxygen Saturation 97% 09/06/2019 7:55 AM CDT Inhaled Oxygen Concentration - - Weight 76.7 kg (169 lb) 09/06/2019 6:00 AM CDT Height 180.3 cm (5' 11 ) 09/06/2019 6:00 AM CDT Body Mass Index 23.57 09/06/2019 6:00 AM CDT Plan of Treatment Not on file Advance Directives * Full Resuscitation (Latest Code Status on File) Date Activated Date Inactivated Comments 2019 8:07 PM 09/06/2019 2:35 PM
--- OUTSIDE RECORDS SUMMARY | 2024-10-09 14:40 | XMS_ITS | Continuity of Care Document ---
Author Organization [facility] Address [address] [place] [address] [place] [address] Phone Care Team Providers Care Load Dispatcher Name Role Phone Matty Llamas MD Unavailable Unavailable Allergies, Adverse Reactions, Alerts Substance Reaction Status Criticality No Known Allergies Active No Inform ation Medications Medication Instructions Dosage Effective Dates (start - stop) Status Comments Lasix 40 mg tablet take 1 tablet by ora l route every day 40 MG - Active oxycodone 10 mg tablet take 1 tablet by oral route 3 times every day 10 MG - Active midodrine 10 mg tablet take 1 tablet by oral route 3 times every day 10 MG - Active spironolactone 50 mg tablet take 1 tablet by oral route every day 50 MG - Active Procedures Procedure Date OFFICE/OUTPATIENT VISIT, EST OFFICE/OUTPATIENT VISIT, EST OFFICE/OUTPATIENT VISIT, EST OFFICE/OUTPATIENT VISIT, EST OFFICE/OUTPATIENT VISIT, EST OFFICE/OUTPATIENT VISIT, EST OFFICE/OUTPATIENT VISIT, EST OFFICE/OUTPATIENT VISIT, EST OFFICE/OUTPATIENT VISIT, EST OFFICE/OUTPATIENT VISIT, EST OFFICE/OUTPATIENT VISIT, EST OFFICE/OUTPATIENT VISIT, EST OFFICE/OUTPATIENT VISIT, EST PREV VISIT, EST, AGE 40-64 OFFICE/OUTPATIENT VISIT, EST OFFICE/OUTPATIENT VISIT, EST OFFICE/OUTPATIENT VISIT, EST OFFICE/OUTPATIENT VISIT, EST OFFICE/OUTPATIENT VISIT, EST OFFICE/OUTPATIENT VISIT, EST OFFICE/OUTPATIENT VISIT, EST OFFICE/OUTPATIENT VISIT, EST PREV VISIT, NEW, AGE 40-64 Advance Directives Directive Yes / No Effective Date File Name No Information Encounters Encounter Description Practice Location Reason(s) For Visit Diagnoses Date Provider Providers Copied on Encounter [facility], [address] [place], [place], [address], tel:[phone] [facility] No Information 2 Farhad Underwood [address], [address] [place], [place], [address] , [place]. tel:[phone] OFFICE/OUTPA TIENT VISIT, [facility], [address] [place], [place], [address], [place] [phone] [facility] back pain1 (chief complaint) toothache1 (chief complaint) inguinal hernia1 (chief complaint) anemia1 (chief complaint) Atypical facial painGERD w/o esophagitisAbnormal weight gainAnemiaNeuropath yInguinal hernia 1 Farhad Underwood [address], [address], [place], [place], [address] , [place]. tel:[phone] OFFICE/OUTPA TIENT VISIT, [facility], [address], [address], [place] tel:[phone] [facility] toothache1 (chief complaint) inguinal hernia1 (chief complaint) Atypical facial painInguinal hernia 1 Farhad Underwood [address], [address] [place], [address] , [place]. tel:[phone] OFFICE/OUTPA TIENT VISIT, [facility], [address] [place], [address], [place] tel:[phone] [facility] toothache1 (chief complaint) Atypical facial pain 1 Farhad Underwood [address], [place], [place], [address] , [place]. tel:[phone] OFFICE/OUTPA TIENT VISIT, [facility], [address], [place], [place], [address], [place] tel:[phone] [facility] cirrhosis1 (chief complaint) CirrhosisNeuropathy 1 Farhad Underwood [address], [place], [place], [address] , [place]. tel:[phone] OFFICE/OUTPA TIENT VISIT, [facility], [address], [place], [place], [address], [place] tel:[phone] [facility] GERD1 (chief complaint) liver cirrhosis1 (chief complaint) GERD w/o esophagitisCirrhosi s 1 Farhad Underwood [address], [place], [place], [address] , [place]. tel:[phone] OFFICE/OUTPA TIENT VISIT, [facility], [address], [place], [place], [address], [place] tel:[phone] [facility] GERD1 (chief complaint) eczema1 (chief complaint) hernia1 (chief complaint) EczemaGERD w/o esophagitisInguinal herniaTobacco use 0 Farhad Underwood [address], [place], [place], [address] , [place]. tel:[phone] OFFICE/OUTPA TIENT VISIT, [facility], [address], [place], [place], [address], [place] tel:[phone] [facility] inguinal hernia1 (chief complaint) Inguinal herniaCirrhosis 0 Farhad Starr. [address], [place], [place], [address] , [place]. tel:[phone] OFFICE/OUTPA TIENT VISIT, [facility], [address], [place], [place], [address], [place] tel:[phone] [facility] bulge1 (chief complaint) cirrhosis1 (chief complaint) CirrhosisInguinal hernia 0 Farhad Underwood [address], [place], [place], [address] , [place]. tel:[phone] OFFICE/OUTPA TIENT VISIT, [facility], [address], [place], [place], [address], [place] tel:[phone] [facility] cirrhosis1 (chief complaint) bruising1 (chief complaint) CirrhosisHematemesi s 0 Farhad Starr. [address], [place], [place], [address] , [place]. tel:[phone] OFFICE/OUTPA TIENT VISIT, [facility], [address], [place], [place], [address], [place] tel:[phone] [facility] rib pain1 (chief complaint) Alcoholic cirrhosis of liver with ascitesAcquired deformity of chest and rib 0 Farhad Starr. [address], [place], [place], [address] , [place]. tel:[phone] OFFICE/OUTPA TIENT VISIT, [facility], [address], [place], [place], [address], [place] tel:[phone] [facility] shoulder pain1 (chief complaint) Pain in left shoulderBicipital tendinitis, left shoulder 0 Farhad Starr. [address], [place], [place], [address] , [place]. tel:[phone] OFFICE/OUTPA TIENT VISIT, [facility], [address], [place], [place], [address], [place] tel:[phone] [facility] UTI1 (chief complaint) phos1 (chief complaint) bili1 (chief complaint) anemia1 (chief complaint) AnemiaDisorder of bilirubin metabolism, unspecifiedOther disorders of phosphorus metabolismHyperglyc emiaHyponatremia 0 Farhad Starr. [address], [place], [place], [address] , [place]. tel: [phone] OFFICE/OUTPA TIENT VISIT, [facility], [address], [place], [place], [address], [place] tel:[phone] [facility] shoulder pain1 (chief complaint) Pain in left shoulder 0-202 0 Llamas Matty. [address], [place], [place], [address] , [place]. tel:[phone] PREV VISIT, EST, AGE 40-64 [facility], [address], [place], [place], [address], [place] tel:[phone] [facility] Medicine PHysical (chief complaint) Encounter for general adult medical exam w abnormal findingsCirrhosisNe uropathyOrthostatic hypotension 0 Farhad Starr. [address], [place], [place], [address] , [place]. tel:[phone] OFFICE/OUTPA TIENT VISIT, [facility], [address], [place], [place], [address], [place] tel:[phone] [facility] arm pain1 (chief complaint) Pain in left shoulderBicipital tendinitis, left shoulder 0 Farhad Starr. [address], [place], [place], [address] , [place]. tel:[phone] OFFICE/OUTPA TIENT VISIT, [facility], [address], [place], [place], [address], [place] tel:[phone] [facility] Medicine orthostasi s1 (chief complaint) Orthostatic hypotensionCoronary artery disease of wr[place] coronary artery without angina pectoris 0 Llamas Matty. [address], [place], [place], [address] , [place]. tel:[phone] OFFICE/OUTPA TIENT VISIT, [facility], [address], [place], [place], [address], [place] tel:[phone] [facility] abd pain1 (chief complaint) Abdominal painSoft tissue disorder October-0 0 Farhad Underwood [address], [place], [place], [address] , [place]. tel:[phone] OFFICE/OUTPA TIENT VISIT, [facility], [address], [place], [address], [place] tel:[phone] [facility] liver cirrhosis (chief complaint) CirrhosisGeneralize d Anxiety Disorder Aug-3 0 Farhad Starr. [address], [place], [place], [address] , [place]. tel:[phone] OFFICE/OUTPA TIENT VISIT, [facility], [address], [place], [place], [address], [place] tel:[phone] [facility] cough1 (chief complaint) edema1 (chief complaint) weight gain1 (chief complaint) skin (chief complaint) Acute bronchitisRashAbnor mal weight gainEdema 0 Farhad Starr. [address], [place], [place], [address] , [place]. tel:[phone] OFFICE/OUTPA TIENT VISIT, [facility], [address], [place], [place], [address], [place] tel:[phone] [facility] cirrhosis1 (chief complaint) rash1 (chief complaint) emphysema1 (chief complaint) CirrhosisRashNeurop athyEsophageal varicesEmphysema May-0 -201 9 Farhad Underwood [address], [place], [place], [address] , [place]. tel:[phone] Referring Provider: Matty Llamas [address], [place], [place], [address]. tel:[phone] OFFICE/OUTPA TIENT VISIT, [facility], [address], [place], [address], [place] tel:[phone] [facility] insomnia1 (chief complaint) back pain1 (chief complaint) liver cirrhosis1 (chief complaint) InsomniaCirrhosisNe uropathyLoss of appetite 9 Farhad Starr. [address], [place], [place], [address] , [place]. tel:[phone] Referring Provider: William Huber [address], [place], [place], [address]. tel:[phone] PREV VISIT, NEW, AGE 40-64 [facility], [address], [place], [place], [address], [place] tel:[phone] [facility] Physical (chief complaint) Encntr for general adult medical exam w/o abnormal findings 9 Farhad Starr. [address], [place], [place], [address] , [place]. [phone] Referring Provider: William Huber [facility] [address], [place], [place], [address]. tel:[phone] Family History Family Member Type Diagnosis Age At Onset Father Problem (finding) Alive and well Mother Problem (finding) Alive and well Brother Problem (finding) suicide Payers Payer name Insurance type Covered republican ID Authoriza tion(s) No Information Social History Type Description Quantity Date Captured Comments Alcohol Use Details Unknown Caffeine Use Details Unknown Tobacco Use Status Smoking Status No Information Sex Male Chief Complaint And Reason For Visit No Information Plan Of Treatment Date Type Action Status Goal Tobacco cessation counseling completed Goal Tobacco cessation counseling completed Goal Tobacco cessation counseling completed Goal Tobacco cessation counseling completed Referral Ordered: Pain Medicine (related to Neuropathy) ordered Referral Ordered: Referrals: Pain Medicine. Evaluate and treat ordered Referral Referred To: Rodrigo Stanley [address], [phone] Ordered: Referrals: Rodrigo Stanley. Evaluate and treat ordered Referral Ordered: Neil Pinto -[facility] : Orthopaedic Surgery (related to Bicipital tendinitis, left shoulder) ordered Referral Referred To: Neil Pinto [address] [place] [address] DR CHINMAY Melendez [address] [phone] Ordered: Referrals: [facility]opathic Physicians : Orthopaedic Surgery. Neil Pinto. Evaluate and treat ordered Referral Ordered: Hematology (related to Anemia) ordered Referral Ordered: Referrals: Hematology. Evaluate and treat ordered Referral Ordered: US EXAM, EXTREMITY Left shoulder ordered Referral Ordered: MRI UPPER EXTREMITY W/O DYE ordered Referral Ordered: US EXAM, ABDOM, COMPLETE ordered Referral Ordered: CHEST X-RAY PA/LAT TWO-VIEWS ordered Referral Ordered: CT THORAX W/O DYE ordered History Of Present Illness Encounter Date Complaint History Of Prese nt Illness anemia1 Pt has chronic s table anemia due to liver cirrhosis. pt denies any GI bleeding. Pt states that he had EGD done recently by GI at [facility] as well as colonoscopy which was benign. Pt is off PPI and pepcid Pt denies any GERD back pain1 Pt has chronic l ow back and neck pain Pt has peripheral neuropathy symptoms. Pt had negative NCS/EMG last year by neurology. Pt is on oxycodone 3-4 per day currently for pain control by neurology. Pt told me his neurologist who does the pain control no longer wants to continue pain management for him and told him to go to his pcp for pain control? Pt states that he has 10/10 low back pain Pt denies any saddle area paresthesia. inguinal hernia1 Pt has large ri ght inguinal hernia and he is seeing surgeon but he still has not had surgery yet due to other complications. he notices intermittent pain and he has hard time to reduce it. Pt denies any urinary symptoms. Pt states that he supposes to have surgery for the hernia but the procedure was canceled right before the surgery due to nose bleeding Pt was referred to [facility] for surgery but he states that he is back with Dr. stanley's office to do the surgery again. he denies any acute hernia pain pt denies any constipation, diarrhea, nausea, vomiting. toothache1 Pt has severe pe riodontal disease with tooth decay. Pt is seeing oral surgeon who plans to extract all his teeth. Pt c/o toothache and gum swelling. t denies any bleeding or facial swelling or headache or fever. Pt states that the procedure has been delayed due to insurance not covering certain procedures and he is still working with the oral surgeon and his insurance to get the procedure done inguinal hernia1 Pt has right in guinal hernia and Dr. Stanley could not repair it due to his liver cirrhosis and he is seeing surgeon now at [facility] for pending repair. Pt denies any worsening pain, any bruising. toothache1 Pt has recurrent toothache. Pt needs tooth extraction and he wants to see oral surgeon because he wants to get it done under general anesthesia and his dentist does not do that. he has tooth decay with multiple cavity and he has toothache frequently. Pt is looking for oral surgeon. Pt c/o acute onset of pain and swelling right lower tooth area with some facial swelling since 4 days ago and Pt did a visit with virtual doctor and he was stated on augmentin x 3 days and he started to have abdominal pain and some non-blood diarrhea ad he called the virtual doctor back and was switched to clindamycin 300 mg BID but he has not started yet. He is afraid of abx induced GI issue. Pt states that abdominal pain and diarrhea resolved since stopping augmenting Pt also has been taking probiotics. Pt states that the tooth pain and swelling resolved with augmentin. Pt wants to know if he should take clindamycin. toothache1 Pt has severe pe riodontal disease with tooth decay. Pt is seeing oral surgeon who plans to extract all her teeth. Pt c/o toothache and gum swelling for 2-3 days. Pt denies any bleeding or facial swelling or headache or fever. Pt wants some abx. cirrhosis1 pt has liver cir rhosis with ascites and peripheral neuropathy. Pt states that he is having hard time taking care of chores, shopping for grocery, coming in and out of house and prepare meals himself. Pt has difficulty with gait and ambulation and he usually walks with cane but he needs help get in and out of vehicles. Pt states that he called his insurance and requesting personal foster care worker to help with above. Pt told me insurance wants me to write something for him to get PA for such service. liver cirrhosis1 Pt has liver ci rrhosis and ascites. Pt is out of spironolactone Pt wants refill from me .Pt states that he called his GI doctor and nurse told him to call me for refills. GERD Pt has chronic G ERD with nausea. Pt states that pepcid makes him nauseated also. Pt states that he took protonix which make him nauseated .Pt also choked on food recently. Pt supposes to follow up with GI for EGD. Pt denies any drooling .Pt states that he tends to be nauseated with liver cirrhosis anyway .Pt wants something else for GERD and nausea. Pt denies any abd pain Pt has been taking tums. pt denies any abd pain. Pt denies any drooling eczema1 Pt has chronic e czema with intermittent flare up on torso. Pt denies any active symptoms Pt wants steroid topical refilled to use PRN hernia1 Pt has large rig ht inguinal hernia .pt was cleared for surgery but was postponed due to COVID. Pt denies any worsening pain Pt is at his baseline regarding the hernia GERD1 Pt recently went to ER for food impaction. Pt was hungry and he swallowed some fish but noticed the fish got stuck in the mid chest area caused him to gag and vomit. He tried to drink fluid but continued to spit the water back up. he paged me for instruction and I told him to go to ER, which he did on 05/26/20. Pt was supposed to be admitted for emergency EGD but he ended up passing the food and was able to drink water without any vomiting or any distress and he was sent home. Pt did have EGD last year which showed esophageal varices per patient. Pt currently denies any nausea, vomiting, dysphagia, drooling, etc. Pt does have chronic gerd. Pt was on zantac a while back which did help but he has not been on any medication for at least 6 months. PT was given protonix by ER MD which caused him to be nauseated and he wants to go back to zantac. He told me his GI forgot to prescribe him anti acid after recent TIPs surgery. Pt denies any abd pain inguinal hernia1 Pt has right in guinal hernia with mild pain for several weeks. Pt denies any bruising pt has normal urine and bm .Pt just saw surgeon who plans to perform laparoscopic surgery soon pending clearance by his liver specialist. Pt does have small amount of ascites. PT is on lasix and spironolactone currently Pt will have abdominal CT tomorrow. Pt denies any pain around inguinal area . cirrhosis1 Pt has liver cir rhosis with ascites Pt has chronic abd pain, Pt has TIPS. Pt needs disability form completed. Pt currently doing ok. PT denies any jaundice bulge1 Pt notices bulgi ng mass right inguinal area x 2 days .Pt notices pain when he pushes on it Pt denies any testicular pain or nodule Pt denies any urinary symptoms. Pt denies any bruising, Pt denies any redness or warmth. PT denies any nausea, vomiting. Pt denies any urinary symptoms bruising1 Pt notices more easy bruising lately without any bleeding. ,Pt coughs up some very mild blood tinge phlegm this morning Pt denies any chest pain or persistently hematemesis cirrhosis1 Pt has liver cir rhosis. pt has chronic abdominal pain with ascites rib pain1 Pt states that lillie marroquin was resuscitated during cardiac arrest 6 months ago and he had several rib fractures on both side. Pt states that since then he notices slightly protruding of the bottom of left rib compare to the right side. pt denies any pain Pt denies any redness or warmth . Pt wants to see ortho regarding that. Pt denies any sob. shoulder pain1 Pt c/o persisten t left shoulder pain. Pt denies any injury. Pt notices sharp left shoulder joint pain, worse with movement. PT denies any radiculopathy. Pt had left shoulder ultrasound done which showed partial thickness tear of the left supraspinatus tendon of left shoulder. UTI1 Pt c/o mild dysu glory on and off for several weeks .Pt did have urinary catheter recently. his UA is essentially ok pt denies any difficulty with urination. Pt states that he feels mild irritation around tip of urethra when he urinate . phos1 Pt has borderlin e high phos bili1 Pt has borderlin e high direct bili. his total bili is ok. Pt denies any jaundice He does have liver cirrhosis anemia1 Pt has chronic a nemia Pt states that he was told that anemia is from liver cirrhosis. Pt states that he feels fatigue all the time he denies any sob or chest pain shoulder pain1 Pt c/o left shou lder pain for several months. . pt denies any neck pain. Pt notices pain around left bicep area with manual pushing. Pt denies any swelling or bruising Pt denies any injury. he notices radiating pain from left bicep area down to left hand Pt denies any left arm and hand weakness Pt notices restricted ROm left arm due to left bicep/triceps area pain and stiffness. . Pt denies any axillary nodule. Pt feels normal pulse left wrist. Pt denies any finger cyanosis or cold finger . Pt had MRi scheduled but he could not get into the MRI due to panic attacks. Pt denies any redness or warmth or any deformity around left shoulder or bicep area. PHysical Pt needs annual physical. Pt has chronic liver cirrhosis with ascites. Pt gets paracentesis periodically. Pt sees GI. Pt recently under TIPS procedure. Pt has chronic back pain with neuropathy Pt sees neurology Pt needs bench transfer for shower. Pt takes morphine, oxycodone for leg pain. Pt failed neurontin. Pt sees neurology Pt has chronic left shoulder pain. Pt denies any injury PT has left shoulder MRI scheduled for next week Pt denies any chest pain or sob. arm pain1 Pt c/o one week history of left bicep and triceps pain and stiffness for one week. pt denies any neck pain. Pt notices pain around left bicep area with manual pushing. Pt denies any swelling or bruising Pt denies any injury. Pt notices he notices radiating pain from left bicep area down to left hand Pt denies any left arm and hand weakness Pt denies any shoulder pain Pt notices restricted ROm left arm due to left bicep/ticep area pain and stiffness. Pt denies any neck pain. Pt denies any axillary nodule. Pt feels normal pulse left wrist. Pt denies any finger cyanosis or cold finger . . orthostasis1 Pt recently had to undergo cardiac resuscitation and he developed orthostasis afterward. Pt received midodrine from cardiology. Pt feels dizzy when he stand up without midodrine Pt wants refill from me. pt did have cardiac echo and cath done recently which showed left ventricle hypokinesis and nonobstructive CAD. Pt denies any chest pain abd pain1 Pt notices some pain right lower quadrant x 2-3 days. Pt notices some small bulge right lower quadrant area. pt denies any redness or warmth Pt denies any injury Pt denies any skin abrasion pt has normal BM Pt denies any nausea, vomiting. Pt denies any urinary symptoms Pt states that he notices more pain when he walks Pt denies any fever or appetite loss. Pt notices mild achy type of pain. Pt denies any pain when he lie down without any movement. Pt only notices pain with standing or walking. He states that the area feels slightly hard and he can not really reduce it. He notices mild pain when he pushes on the area but not as bad as walking liver cirrhosis Pt has liver cir rhosis with ascites. Pt recently has TIPS procedure done and he stood up too fast and he passed out and he had to undergo CPR due to cardiac arrest and he has to be resuscitated and he has some rib fracture also. Pt had to undergo TIPS again. Pt currently is at home now and his BP is around 110/80. He developed severe anxiety from above accident and he wants some anxiety meds PRn Pt denies any depression or any suicidal or homicidal thought .Pt denies any crying spells . He denies any dizziness weight gain1 Pt gained 10 rox nds since his last visit due to accumulation of abdominal fluid edema1 Pt has chronic L E edema. Pt denies any worsening edema. cough1 Pt c/o productiv e cough x 2 weeks pt states that he coughs up yellow phlegm and he has some fever, chill. His fever was as high as 101. Pt has not had any fever for 10 days Pt notices more difficulty with breathing and he had to postpone paracentesis due to cough. As a result, he has more swelling around his abdomen area which tends to cause more sob. Pt does have sick contact ,Pt denies any sore throat or ear pain Pt denies any recent travel or any contact with people from [place] skin Pt c/o itching r balwinder around abdomen for 4 weeks. Pt notices mild itching. . Pt denies any pain, Pt denies any abdominal pain Pt scratches constantly due to itching. Pt denies any rash reset of body. Pt states that steroid cream does help Pt denies any warmth rash1 Pt c/o itching r balwinder around abdomen for two weeks Pt had paracentesis two days ago. radiologist told him about the rash Pt notices very itching and spreading to bilateral side now. Pt denies any pain, Pt denies any abdominal pain Pt scratches constantly due to itching. Pt denies any fever. cirrhosis1 Pt has liver cir rhosis with ascites ,Pt is seeing GI for paracentesis and he just saw a liver specialist at [facility] also Pt is on spironolactone. now. Pt had EGD done recently 3 months ago which showed small esophageal varices with esophagitis Pt is on zantac and doing ok. GI will do shunt procedure soon Pt is on spironolactone also emphysema1 Pt has mild emph ysema. Pt denies any sob Pt still smoking Pt liver cirrhosis1 Pt has liver ci rrhosis without hepatitis per patient Pt has large amount of ascites. Pt sees Dr. Davidson (GI) in [place] and he has paracentesis monthly His last paracentesis was 4 weeks ago and he has janet with for repeat procedure next week. Pt could not tolerate spironolactone due low sodium from it in the past. Pt denies any sob or chest pain. Pt did gain some weight since his last visit. pt has poor eating and appetite and he wants some boost. Pt has poor appetite whenever his stomach swells up back pain1 Pt has chronic l ow back pain with neuropathy. Pt denies any loss of bladder control. Pt walk with cane due to poor balance. Pt denies any syncope. Pt recently had MRI of neck and midback per neurology but no MRI of L spine pt denies any sciatica. Pt denies any loss of bladder control. Pt walks with cane. Pt takes tylenol PRN for pain Pt has janet with neurology next week. insomnia1 Pt has chronic i nsomnia and he wants to try melanotonin. Pt denies any snoring or any trouble with breathing at night. Pt wants a script Physical Pt needs annual physical. Pt has liver cirrhosis due to unknown etiology. Pt is seeing GI specialist at [place] currently. pt told me his hepatitis test was negative. Pt had EGD done which showed mild varices. pt has ascites. Pt just got paracentesis last week. Pt will have MRI of abdomen done next week Pt currently is getting work up done now. pt was on diuretic and was stopped by GI last week per patient. Pt notices mild swelling left ankle and foot chronically Pt denies any abd pain. Pt also walks with cane and he sometimes loses balance easily Pt has chronic low back pain with neuropathy Pt is seeing Dr. tay Pt is not on any medication for neuropathy. Pt is working with neurology for poor balance issue Pt denies any headache or mental status change. Pt denies any chest pain or headache. Instructions Date Instruction Additional Infor melina Quit smoking Related to Cirrh osis Increase physical activity Relat ed to [facility] for general adult medical exam w/o abnormal findings Assessments Type Assessment Date No Information
== END 2024-10-09 13:45 | disposition home or self-care (01) ==
PROVIDERS: PCP Family Medicine
DX: M47.24 Other spondylosis with radiculopathy, thoracic region (principal); M41.9 Scoliosis, unspecified
CPT/HCPCS: 72128; 72131